=== PATIENT | female | born 1975 | race Caucasian/White ===

== ENCOUNTER → 2016-12-23 | Outpatient (CLI) | payer OTHER ==
[~2016-12-23] MED LIST: B12; BENZ0.5T3 PO; BUPR100T7 PO; CEPH-507 PO; CLON1TAB3 PO; CTLP20T PO; D3; DOXY25TA46 PO; ESCI20TA45 PO; FAMO20TA5 PO; FERR-84 PO; HSCO125 PO; HYDR-700 PO; KETO10TA77 PO; KETO75CA PO; MESA10002 RC; MULTIVITAMIN; MUPI22OI2 TOP; OLAN10TA17 PO; OMEP20TA2 PO; ONDA-42 SL; ONDA8TAB9 PO; PANT40TA3 PO; PNT40TEC PO; QUET200T2 PO; SCR1T1 PO; SERT100T8 PO; SODI1POW MC; TRAZ-28 PO; ZOLP5TAB6 PO; ZOLP5TAB7 PO; [UNRECOGNIZED DRUG - REMARK]
--- NOTE | 2016-12-23 12:31 | Diagnostic Imaging Report ---
PROCEDURE: MRI left upper extremity without contrast. TECHNIQUE: Multiplanar, multisequence non contrast-enhanced MRI of the left upper extremity was accomplished. INDICATION: Shoulder pain. FINDINGS: There are no previous MRI examinations available for comparison. The plain film examination of the left shoulder performed on 10/04/2016 failed to show any sign of an acute abnormality. On the T2 fat-saturated coronal series of this exam, there are few faint areas of slightly increased signal within the substance of the rotator cuff. These are more likely due to tendinosis than to a partial tear. The supraspinatus muscle itself is not retracted or bunched. The acromioclavicular joint is not hypertrophied and there is no narrowing of the outlet for the supraspinatus muscle. The biceps tendon and the subscapularis tendon are intact. On the coronal T2 fat-saturated series, normal sublabral recess is evident. Just superior to this, however, there is a small 3 mm area of abnormal signal in the superior labrum. This finding is worrisome for a small SLAP 2 tear. If further study is desired, then a follow-up exam with intra-articular contrast would be recommended. There is no abnormal signal arising from the osseous structures to suggest bone edema. There is no sign of a joint effusion. IMPRESSION: 1. There is mild tendinosis of the rotator cuff, but there is no evidence for a tear. 2. There is no narrowing of the outlet for the supraspinatus muscle due to degenerative disease of the acromioclavicular joint. 3. There may be a small SLAP 2 tear. Recommendations as above. 4. There is no acute bony abnormality identified. Dictated by: Dictated on workstation # [id number]
== END ==
LOC: RAD 10:14
PROVIDERS: ATTEND Nurse Practitioner
DX: M75.102 Unspecified rotator cuff tear or rupture of left shoulder, not specified as traumatic (principal)
CPT/HCPCS: 73221

== ENCOUNTER → 2017-03-11 | Outpatient (CLI) | payer OTHER | LOC: PREOP 05:40 | PROVIDERS: ATTEND Surgery | DX: Z01.818 Encounter for other preprocedural examination (principal); K21.9 Gastro-esophageal reflux disease without esophagitis; K92.1 Melena ==

== ENCOUNTER 2017-03-15 12:10 | Day surgery (SDC) | payer OTHER ==
[~2017-03-15] VITALS: Ht 157.5 cm; Wt 65.8 kg
[~2017-03-15 12:10] MED LIST changes: -BUPR100T7 PO; -FERR-84 PO; -MESA10002 RC; -SODI1POW MC; -TRAZ-28 PO
[2017-03-15] MEDS ORDERED: NS IV 1000 ML 1,000 ML IV STA (12:22)
[2017-03-15] MEDS ORDERED: HURRICAINE EXT TUBE (BENZOCAINE) XX PRN (12:30)
[2017-03-15] MEDS ORDERED: proPOfol 200 MG/20 ML (DIPRIVAN) VIAL IV ONE (12:44)
[2017-03-15] MEDS ORDERED: MIDAZOLAM 2 MG/2 ML (VERSED) VIAL ONE ×2 (12:44→13:21)
[2017-03-15 12:45] VITALS: BP 103/77
[2017-03-15] MEDS ORDERED: NS IV 1000 ML 1,000 ML ONE (12:57)
[2017-03-15] MEDS ORDERED: SODI1POW MC (12:58)
[2017-03-15] MEDS ORDERED: CLON1TAB3 PO (12:58)
[2017-03-15] MEDS ORDERED: BUPR100T7 PO (12:58)
[2017-03-15] MEDS ORDERED: FERR-84 PO (12:58)
[2017-03-15] MEDS ORDERED: TRAZ-28 PO (12:58)
--- NOTE | 2017-03-15 13:02 | Progress Note-Pre Operative ---
Pre-Operative Progress Note H&P Reviewed The H&P was reviewed, patient examined and no changes noted. Date H&P Reviewed: Mar 15, 2017 Time H&P Reviewed: 13:02 Pre-Operative Diagnosis: reflux, and blood in stools BETTYE CRANE DO Mar 15, 2017 13:02
--- NOTE | 2017-03-15 14:04 | Progress Note-Post Operative ---
Post-Operative Progess Note Surgeon (s)/Development Chemist (s) Surgeon BETTYE CRANE DO Development Chemist: 0 Pre-Operative Diagnosis reflux, and blood in stools Post-Operative Diagnosis minimal gastritis, possible early ulcerative colitis Post-Op Procedure Note Date of Procedure: Mar 15, 2017 Name of Procedure Performed: egd c biopsy and colonoscopy c cold biopsies Description of the Procedure: see note Findings of the Procedure see note Anesthesia Type per mda Estimated blood loss (mL): none Specimen(s) collected/removed antrum, rectal/sigmoid biopsies BETTYE CRANE DO Mar 15, 2017 2:04 pm
[2017-03-15] MEDS ORDERED: MESA10002 RC (14:05)
--- NOTE | 2017-03-15 14:10 | Discharge Inst-Simple/Standard ---
Discharge Inst-Standard Discharge Medications New, Converted or Re-Newed RX: RX on Chart Patient Instructions/Follow Up Plan of Care/Instructions/FU: Follow up with Dr Brown in 2 weeks Take medication as directed. Us at night time. Try to have a bowel movement if you can prior to inserting medication. Activity as Tolerated: Yes Discharge Diet: No Restrictions RICA HUTCHINSON APRN Mar 15, 2017 14:10
[2017-03-15 14:20] VITALS: BP 100/75
[2017-03-15 15:05] VITALS: BP 101/63
[2017-03-15 15:15] VITALS: BP 101/63
--- NOTE | 2017-03-17 10:01 | PROCEDURE REPORT ---
PROCEDURE PHYSICIAN: BETTYE CRANE DATE OF PROCEDURE: 03/15/2017 PREOPERATIVE DIAGNOSIS: 1. Reflux. 2. Blood in stools. POSTOPERATIVE DIAGNOSES: 1. Minimal gastritis. 2. Possible early ulcerative colitis. PROCEDURE: 1. EGD with biopsy. 2. Colonoscopy with cold biopsies. SURGEON: Stephanie. ANESTHESIA: Per MDA ESTIMATED BLOOD LOSS: None. COMPLICATIONS: None. INDICATIONS: The patient is a 41-year-old female who has been having reflux of blood in her stools. She understands the risks and benefits of procedures and wished to proceed with procedures. Consent was signed on the chart. PROCEDURE: The patient was taken endoscopy suite, placed in left lateral recumbent position Timeout was performed. The scope was inserted in the mouth, down the esophagus, stomach and into the duodenum without difficulty. There were no polyps, masses or ulcerations present within the duodenum. The scope was then slowly retracted back into the stomach where it had some minimal erythematous changes in the antrum. Biopsy of the antrum was obtained. The scope was also retroflexed noting no other pathology. The scope was returned its normal position and slowly withdrawn back into the distal esophagus. There were no polyps, masses, or ulcerations. The scope was slowly retracted back until completely removed noting no further pathology. COLONOSCOPY: Digital rectal exam was performed. There were no palpable polyps, masses or ulcerations. The scope was inserted in the rectum, which then demonstrated small ulcerations circumferentially. This continued all the way up to the mid sigmoid colon. The scope was continued to be inserted until the cecum was reached without much difficulty. The prep was adequate. The scope was then slowly retracted back. There were no polyps, masses or ulcers within the cecum, ascending, transverse, descending colon. About midportion of the sigmoid began noticing ulcerations which continued all the way down to the rectum. Cold biopsies were obtained of the sigmoid and rectum. The scope was also retroflexed noting no other pathology. The scope was returned its normal position slowly withdrawn until completely removed. RECOMMENDATIONS: The patient to be placed on Canasa suppositories. Would recommend follow-up with financial planning advisor or management by a primary care provider. Would repeat colonoscopy in one year to reevaluate at that time. If she has any problems prior to that, she should be reevaluated at that time. Job ID: [id number] Dictated Date: 03/15/2017 14:05:04 Wastewater Operator Date: 03/17/2017 09:51:41 / fara
== END 2017-03-15 15:15 | disposition home or self-care (01) ==
LOC: ENDO 12:10
PROVIDERS: ATTEND Surgery
DX: K92.1 Melena (principal); K21.9 Gastro-esophageal reflux disease without esophagitis; K29.70 Gastritis, unspecified, without bleeding
CPT/HCPCS: 84703; 88305

== ENCOUNTER 2017-04-14 14:15 | Outpatient (RCR) | payer SELFPAY ==
[~2017-04-14 14:15] MED LIST changes: +BUPR100T7 PO; +FERR-84 PO; +MESA10002 RC; +SODI1POW MC; +TRAZ-28 PO
== END 2017-05-09 14:44 | disposition home or self-care (01) ==
PROVIDERS: ATTEND Nurse Practitioner
DX: S43.432A Superior glenoid labrum lesion of left shoulder, initial encounter (principal); X58.XXXA Exposure to other specified factors, initial encounter; Y99.8 Other external cause status

== ENCOUNTER 2018-04-26 10:04 | Emergency (ER) | payer MEDICARE, MEDICAID ==
[~2018-04-26] VITALS: Ht 157.5 cm; Wt 56.2 kg
[~2018-04-26 10:04] MED LIST changes: -BENZ0.5T3 PO; +BENZ0.5T42 PO; -DOXY25TA46 PO; +UNISOM25 M1 PO
--- OUTSIDE RECORDS SUMMARY | 2018-04-26 10:10 | XMS REPORT | Clinical Summary ---
Author Author [facility] Organization [facility] Address Unknown Phone Unavailable Care Team Providers Care Teletype Mechanic Name Role Phone Annmarie Srivastava PP Allergies Active Allergy Reactions Severity Noted Date Comments Gluten Meal Nausea And Vomiting 09/01/2016 Metoprolol Nausea And Vomiting 08/15/2015 Unknown Current Medications Prescription Sig. Disp. Refills Start End Date Status Date pantoprazole (PROTONIX) Take 1 tablet (40 mg 30 tablet 0 08/25/20 Active 40 MG tabletIndications: total) by mouth every 15 Gastroesophageal Reflux morning before breakfast. Disease Indications: Gastroesophageal Reflux Disease traZODone (DESYREL) 100 Take 1/2 tab to 1 tab 30 tablet 0 09/17/20 Active MG tabletIndications: nightly as needed for 15 Insomnia insomnia Indications: Trouble Sleeping sucralfate (CARAFATE) 1 G Take 1 g by mouth 3 Active tabletIndications: (three) times daily Gastroesophageal Reflux before meals. Disease Indications: Gastroesophageal Reflux Disease diphenhydrAMINE Take 25 mg by mouth at Active (BENADRYL) 25 mg capsule bedtime. buPROPion (WELLBUTRIN SR) Take 200 mg by mouth 2 Active 200 MG 12 hr (two) times daily. tabletIndications: Major Indications: Major Depressive Disorder Depressive Disorder clonazePAM (KLONOPIN) 0.5 Take 1 tablet (0.5 mg 28 tablet 0 09/07/20 Active MG tabletIndications: total) by mouth 2 (two) 16 anxiety times daily. Indications: anxiety Do not exceed a daily dose of 1 mg DULoxetine (CYMBALTA) 60 Take 1 capsule (60 mg 14 capsule 0 09/07/[address] capsuleIndications: total) by mouth daily. 16 Generalized Anxiety Indications: Generalized Disorder, Major Anxiety Disorder, Major Depressive Disorder Depressive Disorder Active Problems Problem Noted Date VIVIANE (generalized anxiety disorder) 08/16/2015 MDD (major depressive disorder), recurrent severe, without psychosis (HCC) 08/15/2015 Resolved Problems Problem Noted Date Resolved Date Depression with suicidal ideation 09/01/2016 09/07/2016 Mood disorder (HCC) 09/07/2015 09/17/2015 Immunizations Name Dates Previously Given Next Due INFLUENZA IIV4 PF 09/02/2016 (FLULAVAL,FLUZONE,FLUARIX ,AFLURIA QUAD) Influenza IIV3 PFree 08/15/2015 Social History Tobacco Use Types Packs/Day Years Used Date Never Smoker Alcohol Use Drinks/Week oz/Week Comments No Sex Assigned at Date Recorded Not on file Last Filed Vital Signs Vital Sign Reading Time Taken Blood Pressure 97/65 09/07/2016 7:29 AM CDT Pulse 120 09/07/2016 7:29 AM CDT Temperature 36.7 C (98.1 F) 09/07/2016 7:26 AM CDT Respiratory Rate 18 09/07/2016 7:26 AM CDT Oxygen Saturation 97% 09/07/2016 7:26 AM CDT Inhaled Oxygen - - Concentration Weight 66.2 kg (146 lb) 09/02/2016 1:01 AM CDT Height 157.5 cm (5' 2.01") 09/02/2016 1:01 AM CDT Body Mass Index 26.7 09/02/2016 1:01 AM CDT Plan of Treatment Health Maintenance Due Date Last Done Comments Varicella Vaccines (1 of 1987 2 - 2 Dose Adolescent Series) DTaP,Tdap,and Td Vaccines 1993 (1 - Tdap) CERVICAL CANCER SCREENING 1995 Influenza Vaccine (Season 07/29/2018 09/02/2016, 08/15/2015 Ended) Results Not on filefrom Last 3 Months
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
--- OUTSIDE RECORDS SUMMARY | 2018-04-26 10:11 | XMS REPORT ---
Author Author SHARAN Hernandez [facility] Address [address] [place] [address] Care Team Providers Care Vice Principal Name Role Phone SHARAN Hernandez Unavailable PROBLEMS Type Condition ICD9-CM Code [id number] Code Onset Dates Condition Status SNOMED Code Problem Major depressive disorder, recurrent severe without psychotic features F33.2 Active 051691823476 Problem Abdominal pain R10.9 Active 17873240 Problem Gastroesophageal reflux disease without esophagitis K21.9 Active 503352863 Problem Iron deficiency anemia, unspecified iron deficiency anemia type D50.9 Active 69897427 Problem Panic disorder with agoraphobia F40.01 Active 24614201 Problem Post traumatic stress disorder F43.10 Active 66910939 Problem History of celiac disease Z87.19 Active 586441730 Problem Epigastric pain R10.13 Active 39652407 Problem Chronic post-traumatic stress disorder F43.12 Active 136386733 Problem Tear of left rotator cuff, unspecified tear extent M75.102 Active 1469640 ALLERGIES Substance Reaction Event Type Date Status Brintellix nausea and vomiting Drug Allergy Jan, Active Mirtazapine fatigue and nausea Drug Allergy Jan, Active Topamax 50 Mg Tablet dizziness Non Drug Allergy Jan, Active SOCIAL HISTORY Never Assessed PLAN OF CARE Activity Details Follow Up 4 Weeks Reason: VITAL SIGNS Height 62 in 2017-02-21 Weight 121.0 lbs 2017-02-21 Heart Rate 88 bpm 2017-02-21 Respiratory Rate 18 2017-02-21 BMI 22.13 kg/m2 2017-02-21 Blood pressure systolic 92 mmHg 2017-02-21 Blood pressure diastolic 65 mmHg 2017-02-21 MEDICATIONS Medication Instructions Dosage Frequency Start Date End Date Duration Status Wellbutrin SR 100 MG Orally Twice a day 1 tablet 12h 30 days Active Cymbalta 30 MG Orally Once a day 3 capsules 24h 30 days Active Trazodone HCl 100 MG Orally Once a day as needed 0.5 to 1 tablet at bedtime 30 days Active Iron 325 (65 Fe) MG Orally Once a day 1 tablet 24h Dec, 30 day( s) Active Pantoprazole Sodium 40 MG oral daily 1 tablet 24h Active Klonopin 1 MG Orally Twice a day 1 tablet 12h Active Carafate 1 GM Orally three times a day 1 tablet on an empty stomach 8h Active RESULTS Name Result Date Reference Range URINE DRUG SCREEN (IN HOUSE) 2017-02-21 Lot # [id number] Exp date Control + COCAINE Negative AMPH Negative MTD Negative THC Negative OPIATE Negative BENZO Negative PCP Negative BAR Negative OXY Negative MAMP Negative TCA Negative BUP Not tested MDMA Negative PROCEDURES Procedure Date Ordered Result Body Site DRUG TEST PRSMV DIR OPT OBS February 21, 2017 IMMUNIZATIONS No Known Immunizations MEDICAL (GENERAL) HISTORY Type Description Date Medical [...] curettage Surgical History EGD 2012 Hospitalization History [facility]--Attempted suicide 07/2015 Hospitalization History [facility] -- Attempted suicide 08/2015 Hospitalization History [facility] health unit 11/2015 Hospitalization History [facility] 08/2016
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
--- OUTSIDE RECORDS SUMMARY | 2018-04-26 10:13 | XMS REPORT ---
Author Author RACHELE LEE [facility] Address [address] [place] [address] Care Team Providers Care Fitness Specialist Name Role Phone RACHELE LEE Unavailable PROBLEMS Type Condition ICD9-CM Code [id number] Code Onset Dates Condition Status SNOMED Code Problem Major depressive disorder, recurrent severe without psychotic features F33.2 Active 421284536210 Problem Iron deficiency anemia, unspecified iron deficiency anemia type D50.9 Active 94409213 Problem Chronic post-traumatic stress disorder F43.12 Active 765830622 Problem Tear of left rotator cuff, unspecified tear extent M75.102 Active 2733915 Problem Abdominal pain R10.9 Active 53528908 Problem Gastroesophageal reflux disease without esophagitis K21.9 Active 090830026 Problem History of celiac disease Z87.19 Active 588822561 Problem Epigastric pain R10.13 Active 54693822 ALLERGIES Substance Reaction Event Type Date Status Brintellix nausea and vomiting Drug Allergy Oct, Active Topamax 50 Mg Tablet dizziness Non Drug Allergy Oct, Active SOCIAL HISTORY No smoking Hx information available PLAN OF CARE Activity Details Follow Up 4 Weeks Reason:tremor VITAL SIGNS Height 62 in 2016-11-17 Weight 136.5 lbs 2016-11-17 Temperature 98.0 degrees Fahrenheit 2016-11-17 Heart Rate 84 bpm 2016-11-17 Respiratory Rate 16 2016-11-17 BMI 24.96 kg/m2 2016-11-17 Blood pressure systolic 100 mmHg 2016-11-17 Blood pressure diastolic 62 mmHg 2016-11-17 MEDICATIONS Medication Instructions Dosage Frequency Start Date End Date Duration Status Wellbutrin SR 150 MG Orally Twice a day 1 tablet 12h Active Pantoprazole Sodium 40 MG oral daily 1 tablet 24h Active Cymbalta 60 MG Orally Once a day 1 capsule 24h Active Carafate 1 GM Orally three times a day 1 tablet on an empty stomach 8h Active Trazodone HCl 100 MG Orally Once a day as needed 0.5 to 1 tablet at bedtime Active RESULTS Name Result Date Reference Range VITAMIN B12 2016-11-17 Vitamin B12 287 211-946 TSH 2016-11-17 TSH 3.090 0.450-4.500 CBC 2016-11-17 WBC 5.6 3.4-10.8 RBC 3.94 3.77-5.28 Hemoglobin 11.4 11.1-15.9 Hematocrit 34.8 34.0-46.6 MCV 88 79-97 MCH 28.9 26.6-33.0 MCHC 32.8 31.5-35.7 RDW 14.6 12.3-15.4 Platelets 302 150-379 Neutrophils 34 Lymphs 49 Monocytes 14 Eos 3 Basos 0 Neutrophils (Absolute) 1.9 1.4-7.0 Lymphs (Absolute) 2.8 0.7-3.1 Monocytes(Absolute) 0.8 0.1-0.9 Eos (Absolute) 0.2 0.0-0.4 Baso (Absolute) 0.0 0.0-0.2 Immature Granulocytes 0 Immature Grans (Abs) 0.0 0.0-0.1 VITAMIN D, 25-H 2016-11-17 Vitamin D, 25-Hydroxy 32.0 30.0-100.0 CMP 2016-11-17 Glucose, Serum 97 65-99 BUN 5 6-24 Creatinine, Serum 0.75 0.57-1.00 eGFR If NonAfricn Am 99 >59 eGFR If Africn Am 114 >59 BUN/Creatinine Ratio 7 9-23 Sodium, Serum 141 134-144 Potassium, Serum 4.3 3.5-5.2 Chloride, Serum 100 96-106 Carbon Dioxide, Total 26 18-29 Calcium, Serum 9.4 8.7-10.2 Protein, Total, Serum 7.1 6.0-8.5 Albumin, Serum 4.2 3.5-5.5 Globulin, Total 2.9 1.5-4.5 A/G Ratio 1.4 1.1-2.5 Bilirubin, Total <0.2 0.0-1.2 Alkaline Phosphatase, S 61 39-117 AST (SGOT) 19 0-40 ALT (SGPT) 13 0-32 Xray : Shoulder, Left 2 view (IN HOUSE) 2016-11-17 PROCEDURES Procedure Date Ordered Related Diagnosis Body Site X-RAY EXAM OF SHOULDER Nov 17, 2016 [facility] Nov 17, 2016 VENIPUNCT, ROUTINE* Nov 17, 2016 Office Visit, Est Pt., Level 4 Nov 17, 2016 IMMUNIZATIONS No Known Immunizations
--- OUTSIDE RECORDS SUMMARY | 2018-04-26 10:13 | XMS REPORT ---
Author Author SHARAN Hernandez [facility] Address [address] [place] [address] Care Team Providers Care Auto Design Checker Name Role Phone SHARAN Hernandez Unavailable PROBLEMS Type Condition ICD9-CM Code [id number] Code Onset Dates Condition Status SNOMED Code Problem Major depressive disorder, recurrent severe without psychotic features F33.2 Active 221368284743 Problem Abdominal pain R10.9 Active 59168879 Problem Gastroesophageal reflux disease without esophagitis K21.9 Active 935914306 Problem Iron deficiency anemia, unspecified iron deficiency anemia type D50.9 Active 09355373 Problem Panic disorder with agoraphobia F40.01 Active 58237693 Problem Post traumatic stress disorder F43.10 Active 73062796 Problem History of celiac disease Z87.19 Active 231862332 Problem Epigastric pain R10.13 Active 11733172 Problem Chronic post-traumatic stress disorder F43.12 Active 548472934 Problem Tear of left rotator cuff, unspecified tear extent M75.102 Active 4752202 ALLERGIES Substance Reaction Event Type Date Status Brintellix nausea and vomiting Drug Allergy March, Active Mirtazapine fatigue and nausea Drug Allergy March, Active Topamax 50 Mg Tablet dizziness Non Drug Allergy March, Active SOCIAL HISTORY Never Assessed PLAN OF CARE Activity Details Follow Up 2 Months Reason: VITAL SIGNS Height 62 in 2017-04-22 Weight 121.4 lbs 2017-04-22 Heart Rate 104 bpm 2017-04-22 Respiratory Rate 20 2017-04-22 BMI 22.20 kg/m2 2017-04-22 Blood pressure systolic 95 mmHg 2017-04-22 Blood pressure diastolic 64 mmHg 2017-04-22 MEDICATIONS Medication Instructions Dosage Frequency Start Date End Date Duration Status Iron 325 (65 Fe) MG Orally twice a day 1 tablet 12h Dec, Active Carafate 1 GM Orally 4 times a day 1 tablet on an empty stomach 6h Active Trazodone HCl 100 MG Orally Once a day as needed 0.5 to 1 tablet at bedtime 30 days Active Pantoprazole Sodium 40 MG oral daily 1 tablet 24h Active Wellbutrin SR 100 MG Orally Twice a day 1 tablet 12h 30 days Active Tizanidine HCl 4 MG Orally at bedtime 1 tablet March, May, 30 days Active Cymbalta 30 MG Orally Once a day 3 capsules 24h 30 days Active Klonopin 1 MG Orally Twice a day 1 tablet 12h Active RESULTS No Results PROCEDURES No Known procedures IMMUNIZATIONS No Known Immunizations MEDICAL (GENERAL) HISTORY [...] curettage Surgical History EGD 2012 Hospitalization History [facility]--Attempted suicide 07/2015 Hospitalization History [facility] -- Attempted suicide 08/2015 Hospitalization History [facility] health unit 11/2015 Hospitalization History [facility] 08/2016
--- OUTSIDE RECORDS SUMMARY | 2018-04-26 10:14 | XMS REPORT ---
Author Author RACHELE LEE [facility] Address [address] [place] [address] Care Team Providers Care Floor Worker Well Service Name Role Phone RACHELE LEE Unavailable PROBLEMS Type Condition ICD9-CM Code [id number] Code Onset Dates Condition Status SNOMED Code Problem Major depressive disorder, recurrent severe without psychotic features F33.2 Active 325978434477 Problem Abdominal pain R10.9 Active 21124856 Problem Gastroesophageal reflux disease without esophagitis K21.9 Active 662115301 Problem Iron deficiency anemia, unspecified iron deficiency anemia type D50.9 Active 19073080 Problem Panic disorder with agoraphobia F40.01 Active 67373018 Problem Post traumatic stress disorder F43.10 Active 86360712 Problem History of celiac disease Z87.19 Active 020734786 Problem Epigastric pain R10.13 Active 81562775 Problem Chronic post-traumatic stress disorder F43.12 Active 893165619 Problem Tear of left rotator cuff, unspecified tear extent M75.102 Active 3784132 ALLERGIES No Information SOCIAL HISTORY Never Assessed PLAN OF CARE VITAL SIGNS MEDICATIONS Medication Instructions Dosage Frequency Start Date End Date Duration Status Iron 325 (65 Fe) MG Orally twice a day 1 tablet 12h Dec, Active RESULTS No Results PROCEDURES No Known [...] curettage Surgical History EGD 2012 Hospitalization History [facility]--Attempted suicide 07/2015 Hospitalization History [facility] -- Attempted suicide 08/2015 Hospitalization History [facility] health unit 11/2015 Hospitalization History [facility] 08/2016
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
--- OUTSIDE RECORDS SUMMARY | 2018-04-26 10:14 | XMS REPORT ---
Author Author RACHELE LEE [facility] Address [address] [place] [address] Care Team Providers Care Account Liaison Name Role Phone RACHELE LEE Unavailable PROBLEMS Type Condition ICD9-CM Code [id number] Code Onset Dates Condition Status SNOMED Code Problem Major depressive disorder, recurrent severe without psychotic features F33.2 Active 370728908671 Problem Abdominal pain R10.9 Active 34534140 Problem Gastroesophageal reflux disease without esophagitis K21.9 Active 297436556 Problem Iron deficiency anemia, unspecified iron deficiency anemia type D50.9 Active 06741739 Problem Panic disorder with agoraphobia F40.01 Active 50824045 Problem Post traumatic stress disorder F43.10 Active 23951879 Problem History of celiac disease Z87.19 Active 352086225 Problem Epigastric pain R10.13 Active 94204685 Problem Chronic post-traumatic stress disorder F43.12 Active 419334636 Problem Tear of left rotator cuff, unspecified tear extent M75.102 Active 5815785 ALLERGIES Substance Reaction Event Type Date Status Brintellix nausea and vomiting Drug Allergy Jan, Active Mirtazapine fatigue and nausea Drug Allergy Jan, Active Topamax 50 Mg Tablet dizziness Non Drug Allergy Jan, Active SOCIAL HISTORY Never Assessed PLAN OF CARE Activity Details Follow Up after consult and scopes Reason: VITAL SIGNS Height 62 in 2017-02-10 Weight 122.6 lbs 2017-02-10 Temperature 98.6 degrees Fahrenheit 2017-02-10 Heart Rate 90 bpm 2017-02-10 Respiratory Rate 18 2017-02-10 BMI 22.42 kg/m2 2017-02-10 Blood pressure systolic 88 mmHg 2017-02-10 Blood pressure diastolic 64 mmHg 2017-02-10 MEDICATIONS Medication Instructions Dosage Frequency Start Date End Date Duration Status Pantoprazole Sodium 40 MG oral daily 1 tablet 24h Active Iron 325 (65 Fe) MG Orally Once a day 1 tablet 24h Dec, 30 day( s) Active Klonopin 0.5 MG Orally Twice a day 1 tablet 12h Active Carafate 1 GM Orally three times a day 1 tablet on an empty stomach 8h Active Trazodone HCl 100 MG Orally Once a day as needed 0.5 to 1 tablet at bedtime Active Wellbutrin SR 150 MG Orally Twice a day 1 tablet 12h Active Cymbalta 60 MG Orally Once a day 1 capsule 24h Active RESULTS Name Result Date Reference Range CBC 2017-02-10 WBC 5.7 3.4-10.8 RBC 3.84 3.77-5.28 Hemoglobin 10.9 11.1-15.9 Hematocrit 34.3 34.0-46.6 MCV 89 79-97 MCH 28.4 26.6-33.0 MCHC 31.8 31.5-35.7 RDW 15.7 12.3-15.4 Platelets 255 150-379 Neutrophils 34 Lymphs 52 Monocytes 11 Eos 2 Basos 1 Neutrophils (Absolute) 1.9 1.4-7.0 Lymphs (Absolute) 3.0 0.7-3.1 Monocytes(Absolute) 0.6 0.1-0.9 Eos (Absolute) 0.1 0.0-0.4 Baso (Absolute) 0.0 0.0-0.2 Immature Granulocytes 0 Immature Grans (Abs) 0.0 0.0-0.1 CMP 2017-02-10 Glucose, Serum 91 65-99 BUN 6 6-24 Creatinine, Serum 0.81 0.57-1.00 eGFR If NonAfricn Am 90 >59 eGFR If Africn Am 104 >59 BUN/Creatinine Ratio 7 9-23 Sodium, Serum 142 134-144 Potassium, Serum 3.4 3.5-5.2 Chloride, Serum 102 96-106 Carbon Dioxide, Total 25 18-29 Calcium, Serum 8.5 8.7-10.2 Protein, Total, Serum 6.4 6.0-8.5 Albumin, Serum 3.7 3.5-5.5 Globulin, Total 2.7 1.5-4.5 A/G Ratio 1.4 1.2-2.2 Bilirubin, Total <0.2 0.0-1.2 Alkaline Phosphatase, S 66 39-117 AST (SGOT) 16 0-40 ALT (SGPT) 11 0-32 PROCEDURES Procedure Date Ordered Result Body Site IV INFUSION 2017-02-10 N/A COMPLETE CBC W/AUTO DIFF WBC February 10, 2017 VENIPUNCT, ROUTINE* February 10, 2017 COMPREHEN METABOLIC PANEL February 10, 2017 HYDRATION IV INFUSION, INIT February 10, 2017 IMMUNIZATIONS No Known Immunizations MEDICAL (GENERAL) [...] curettage Surgical History EGD 2012 [facility]2015 [facility]2015 Hospitalization History [facility] health unit 11/2015 [facility]
--- OUTSIDE RECORDS SUMMARY | 2018-04-26 10:15 | XMS REPORT ---
Author Author RACHELE LEE [facility] Address [address] [place] [address] Care Team Providers Care Medical Cash Poster Name Role Phone RACHELE LEE Unavailable PROBLEMS Type Condition ICD9-CM Code [id number] Code Onset Dates Condition Status SNOMED Code Problem Major depressive disorder, recurrent severe without psychotic features F33.2 Active 095701646067 Problem Abdominal pain R10.9 Active 00763969 Problem Gastroesophageal reflux disease without esophagitis K21.9 Active 696433607 Problem Iron deficiency anemia, unspecified iron deficiency anemia type D50.9 Active 26726387 Problem Panic disorder with agoraphobia F40.01 Active 31950645 Problem Post traumatic stress disorder F43.10 Active 09335107 Problem History of celiac disease Z87.19 Active 834036132 Problem Epigastric pain R10.13 Active 33455770 Problem Chronic post-traumatic stress disorder F43.12 Active 258406577 Problem Tear of left rotator cuff, unspecified tear extent M75.102 Active 0984135 ALLERGIES Substance Reaction Event Type Date Status Brintellix nausea and vomiting Drug Allergy Nov, Active Mirtazapine fatigue and nausea Drug Allergy Nov, Active Topamax 50 Mg Tablet dizziness Non Drug Allergy Nov, Active SOCIAL HISTORY No smoking Hx information available PLAN OF CARE VITAL SIGNS MEDICATIONS Unknown Medications RESULTS No Results PROCEDURES No Known procedures IMMUNIZATIONS No Known Immunizations
--- OUTSIDE RECORDS SUMMARY | 2018-04-26 10:15 | XMS REPORT ---
Author Author ROBERT SMITH [facility] Address [address] [place] [address] Care Team Providers Care Deputy Brand Inspector Name Role Phone ROBERT SMITH Unavailable PROBLEMS Type Condition ICD9-CM Code [id number] Code Onset Dates Condition Status SNOMED Code Problem Major depressive disorder, recurrent severe without psychotic features F33.2 Active 388127811332 Problem Abdominal pain R10.9 Active 28245412 Problem Gastroesophageal reflux disease without esophagitis K21.9 Active 787614471 Problem Iron deficiency anemia, unspecified iron deficiency anemia type D50.9 Active 17682733 Problem Panic disorder with agoraphobia F40.01 Active 81702030 Problem Post traumatic stress disorder F43.10 Active 62230677 Problem History of celiac disease Z87.19 Active 072075875 Problem Epigastric pain R10.13 Active 17057810 Problem Chronic post-traumatic stress disorder F43.12 Active 606153223 Problem Tear of left rotator cuff, unspecified tear extent M75.102 Active 9904460 ALLERGIES No Information SOCIAL HISTORY Never Assessed PLAN OF CARE Activity Details Follow Up 6 Weeks Reason: VITAL SIGNS Height 62 in 2017-01-06 Blood pressure systolic 106 mmHg 2017-01-06 Blood pressure diastolic 70 mmHg 2017-01-06 MEDICATIONS Unknown Medications RESULTS No Results PROCEDURES Procedure Date Ordered Result Body Site JOINT INJECTION-INTERMEDIATE JOINT 2017-01-06 N/A DRAIN/INJECT, JOINT/BURSA Jan 06, 2017 DEPO MEDROL 80 MG/ML Jan 06, 2017 IMMUNIZATIONS No Known Immunizations MEDICAL (GENERAL) [...] Surgical History EGD 2012 Hospitalization History [facility]--Attempted suicide 07/2015 Hospitalization History [facility] -- Attempted suicide 08/2015 Hospitalization History [facility] behavioral health unit 11/2015 Hospitalization History [facility] 08/2016
--- OUTSIDE RECORDS SUMMARY | 2018-04-26 10:15 | XMS REPORT ---
Author Author RACHELE LEE [facility] Address [address] [place] [address] Care Team Providers Care Route Inspector Name Role Phone RACHELE LEE Unavailable PROBLEMS Type Condition ICD9-CM Code [id number] Code Onset Dates Condition Status SNOMED Code Problem Major depressive disorder, recurrent severe without psychotic features F33.2 Active 425332600460 Problem Abdominal pain R10.9 Active 90547268 Problem Gastroesophageal reflux disease without esophagitis K21.9 Active 323923640 Problem Iron deficiency anemia, unspecified iron deficiency anemia type D50.9 Active 35900537 Problem Panic disorder with agoraphobia F40.01 Active 34941936 Problem Post traumatic stress disorder F43.10 Active 78255236 Problem History of celiac disease Z87.19 Active 899673553 Problem Epigastric pain R10.13 Active 85597496 Problem Chronic post-traumatic stress disorder F43.12 Active 741031160 Problem Tear of left rotator cuff, unspecified tear extent M75.102 Active 9447903 ALLERGIES No Information SOCIAL HISTORY Never Assessed PLAN OF CARE VITAL SIGNS MEDICATIONS Medication Instructions Dosage Frequency Start Date End Date Duration Status Carafate 1 GM Orally 4 times a day 1 tablet on an empty stomach 6h Active RESULTS No Results PROCEDURES No Known [...] Surgical History EGD 2012 Hospitalization History [facility]--Attempted suicide 07/2015 Hospitalization History [facility] -- Attempted suicide 08/2015 Hospitalization History [facility] health unit 11/2015 Hospitalization History [facility] 08/2016
--- OUTSIDE RECORDS SUMMARY | 2018-04-26 10:15 | XMS REPORT ---
Author Author RACHELE LEE [facility] Address [address] [place] [address] Care Team Providers Care Cargo Trimmer Name Role Phone RACHELE LEE Unavailable PROBLEMS Type Condition ICD9-CM Code IPR60-CQ Code Onset Dates Condition Status SNOMED Code Problem Major depressive disorder, recurrent severe without psychotic features F33.2 Active 309823865350 Problem Abdominal pain R10.9 Active 11206092 Problem Gastroesophageal reflux disease without esophagitis K21.9 Active 350569429 Problem Iron deficiency anemia, unspecified iron deficiency anemia type D50.9 Active 33353839 Problem Panic disorder with agoraphobia F40.01 Active 78611943 Problem Post traumatic stress disorder F43.10 Active 95067690 Problem History of celiac disease Z87.19 Active 257999430 Problem Epigastric pain R10.13 Active 48177169 Problem Chronic post-traumatic stress disorder F43.12 Active 463207577 Problem Tear of left rotator cuff, unspecified tear extent M75.102 Active 6663768 ALLERGIES Unknown Allergies SOCIAL HISTORY No smoking Hx information available PLAN OF CARE VITAL SIGNS MEDICATIONS Medication Instructions Dosage Frequency Start Date End Date Duration Status Iron 325 (65 Fe) MG Orally Once a day 1 tablet 24h Dec, 30 day( s) Active RESULTS No Results PROCEDURES No Known procedures IMMUNIZATIONS No Known Immunizations
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
[2018-04-26] MEDS ORDERED: NS IV 1000 ML 1,000 ML IV ONE (10:39)
[2018-04-26 11:47] LABS: BASOPHILS % (AUTO) 0 % (0-10); EOSINOPHILS # (AUTO) 0.2 10^3/uL (0.0-0.3); EOSINOPHILS % (AUTO) 3 % (0-10); HEMATOCRIT 27 % (35-52); HEMOGLOBIN 8.4 G/DL (11.5-16.0); LYMPHOCYTES # (AUTO) 2.8 X 10^3 (1.0-4.0); LYMPHOCYTES % (AUTO) 46 % (12-44); MEAN CORPUSCULAR HEMOGLOBIN 26 PG (25-34); MEAN CORPUSCULAR HGB CONC 32 G/DL (32-36); MEAN CORPUSCULAR VOLUME 81 FL (80-99); MEAN PLATELET VOLUME 10.8 FL (7.4-10.4); MONOCYTES % (AUTO) 17 % (0-12); NEUTROPHILS # (AUTO) 2.1 X 10^3 (1.8-7.8); NEUTROPHILS % (AUTO) 34 % (42-75); PLATELET COUNT 287 10^3/uL (130-400); RED BLOOD COUNT 3.29 10^6/uL (4.35-5.85); RED CELL DISTRIBUTION WIDTH 17.2 % (10.0-14.5); WHITE BLOOD COUNT 6.1 10^3/uL (4.3-11.0)
[2018-04-26 12:05] LABS: ALANINE AMINOTRANSFERASE 13 U/L (0-55); ALBUMIN 3.8 GM/DL (3.2-4.5); ALKALINE PHOSPHATASE 54 U/L (40-136); BILIRUBIN,TOTAL 0.2 MG/DL (0.1-1.0); BUN/CREATININE RATIO 9; CARBON DIOXIDE 29 MMOL/L (21-32); CHLORIDE 105 MMOL/L (98-107); CREATININE SERUM 0.74 MG/DL (0.60-1.30); GFR ESTIMATED > 60; GLUCOSE 82 MG/DL (70-105); POTASSIUM 3.5 MMOL/L (3.6-5.0); SODIUM 140 MMOL/L (135-145)
[2018-04-26] MEDS ORDERED: ONDANSETRON 4 MG/2 ML (SDV) Z0FRAN IVP ONE (12:15)
[2018-04-26 12:29] LABS: PROTHROMBIN TIME PATIENT 13.2 SEC (12.2-14.7)
--- NOTE | 2018-04-26 12:42 | ED General ---
General Chief Complaint: Dizziness/Syncope Stated Complaint: DIZZY/BP LOW Nursing Triage Note: c/o feeling weak and lightheaded. Reports several falls as of late. States for the last year she has has very heavy menstrual bleeding. Low Hg reported and sent to the ER for possible transfusion. Nursing Sepsis Screen: No Definite Risk Source of Information: Patient Exam Limitations: No Limitations History of Present Illness Date Seen by Provider: April 26, 2018 Time Seen by Provider: 11:40 Initial Comments 42 yo female patient presents to the ED with c/o feeling overall weak and lightheaded. Patient reports heavy menstrual bleeding for the last year. Uses approximately 12 pads per day and soaks through multiple times. Patient reports she is getting ready to start her period in the next couple of days. Patient does have a h/o celiac disease and reflux. Had EGD and C/Scope 1 year ago with findings of gastritis and questionable ulcerative colitis. She was seen at [facility] clinic today and found to have a SBP of 80 mmHg. Patient sent to the ED for further evaluation and management. No h/o abnormal pap's. A1. 2 uncomplicated vaginal deliveries. No h/o ovarian cysts or endometriosis. Timing/Duration: Getting Worse, Other (1 year onset) Modifying Factors: worse with Other (no improvement with oral iron supplements. ) Allergies and Home Medications Allergies Coded Allergies: metoprolol (Verified Allergy, Unknown, 08/13/15) Home Medications Bupropion HCl 100 Mg Tablet.er, 100 MG PO DAILY, (Reported) Clonazepam 1 Mg Tablet, 1 MG PO DAILY, (Reported) Ferrous Sulfate 325 Mg Tablet, 325 MG PO DAILY, (Reported) Mesalamine 1,000 Mg Supp.rect, 1,000 MG RC HS Prescribed by: RICA TURNERRick on 03/15/17 1405 Pantoprazole Sodium 40 Mg Tablet.dr, 40 MG PO DAILY, (Reported) Sertraline HCl 100 Mg Tablet, 100 MG PO BID, (Reported) Sodium Sulfate 1 Gm Powder, 1 GM MC DAILY, (Reported) Trazodone HCl 50 Mg Tablet, 50 MG PO DAILY, (Reported) Patient Home Medication List Home Medication List Reviewed: Yes Review of Systems Constitutional: see HPI; No chills, No diaphoresis; dizziness; No fever; malaise, weakness, other (fatigue) EENTM: no symptoms reported Respiratory: No cough, No dyspnea on exertion, No short of breath Cardiovascular: No chest pain, No edema, No palpitations, No syncope Gastrointestinal: see HPI, abdominal pain (epigastric and suprapubic), constipation (chronic intermittent), diarrhea (chronic intermittent); No hematemesis; heartburn; No jaundice; loss of appetite, nausea; No vomiting Genitourinary: see HPI; No dysuria, No frequency; pain, other (menorrhagia.) Musculoskeletal: no symptoms reported Skin: no symptoms reported Psychiatric/Neurological: No Symptoms Reported Hematologic/Lymphatic: See HPI, Anemia (h/o chronic anemia) All Other Systems Reviewed Negative Unless Noted: Yes (Negative excepted noted.) Past Vdishmp-Nkbunl-Gjkxsa Hx Patient Social History Alcohol Use: Denies Use Recreational Drug Use: No Recent Foreign Travel: No Contact w/Someone Who Travel: No Recent Infectious Disease Expo: No Recent Hopitalizations: No Immunizations Up To Date Tetanus Booster (TDap): Less than 5yrs Seasonal Allergies Seasonal Allergies: No Past Medical History Surgeries: Yes (D&C) Gallbladder, Tubal Ligation Respiratory: No Currently Using CPAP: No Currently Using BIPAP: No 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 Neurological: No Headaches /Migraines Hx : 3 Hx Para: 2 Hx Total # of Abortions (Sp): 1 Reproductive Disorders: No 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 Sexually Transmitted Disease: No Genitourinary: No Gastrointestinal: Yes (celiac disease) Gastroesophageal Reflux, Chronic Diarrhea Musculoskeletal: No Endocrine: No Cancer: No Psychosocial: Yes Anxiety, Suicide Attempts, Depression Integumentary: No Blood Disorders: Yes (CHRONIC ANEMIA- RECEIVED IRON INJ X5 IN 2012) Adverse Reaction/Blood Tranf: No Family Medical History Reviewed Nursing Family Hx (DENIES FHX of endometriosis, ovarian cysts, ovarian CA, or uterine CA.) No Pertinent Family Hx Physical Exam Vital Signs Vital Signs - First Documented 04/26/18 10:40 Temp 95.7 Pulse 72 Resp 18 B/P (MAP) 110/70 (83) O2 Delivery Room Air Capillary Refill : Less Than 3 Seconds Progress/Results/Core Measures Suspected Sepsis Recent Fever Within 48 Hours: No Infection Criteria Present: Suspected New Infection New/Unexplained Altered Menta: No Sepsis Screen: No Definite Risk SIRS Temperature:95.7 Pulse: 72 Respiratory Rate: 18 Laboratory Tests 04/26/18 11:30: White Blood Count 6.1 Blood Pressure 110 /70 Mean: 83 Laboratory Tests 04/26/18 11:30: Creatinine 0.74, INR Comment 1.0, Platelet Count 287, Total Bilirubin 0.2 Results/Orders Lab Results Laboratory Tests Test 04/26/18 11:30 04/26/18 13:20 Range/Units White Blood Count 6.1 4.3-11.0 10^3/uL Red Blood Count 3.29 L 4.35-5.85 10^6/uL Hemoglobin 8.4 L 11.5-16.0 G/DL Hematocrit 27 L 35-52 % Mean Corpuscular Volume 81 80-99 FL Mean Corpuscular Hemoglobin 26 25-34 PG Mean Corpuscular Hemoglobin Concent 32 32-36 G/DL Red Cell Distribution Width 17.2 H 10.0-14.5 % Platelet Count 287 130-400 10^3/uL Mean Platelet Volume 10.8 H 7.4-10.4 FL Neutrophils (%) (Auto) 34 L 42-75 % Lymphocytes (%) (Auto) 46 H 12-44 % Monocytes (%) (Auto) 17 H 0-12 % Eosinophils (%) (Auto) 3 0-10 % Basophils (%) (Auto) 0 0-10 % Neutrophils # (Auto) 2.1 1.8-7.8 X 10^3 Lymphocytes # (Auto) 2.8 1.0-4.0 X 10^3 Monocytes # (Auto) 1.0 0.0-1.0 X 10^3 Eosinophils # (Auto) 0.2 0.0-0.3 10^3/uL Basophils # (Auto) 0.0 0.0-0.1 10^3/uL Prothrombin Time 13.2 12.2-14.7 SEC INR Comment 1.0 0.8-1.4 Activated Partial Thromboplast Time 27 24-35 SEC Sodium Level 140 135-145 MMOL/L Potassium Level 3.5 L 3.6-5.0 MMOL/L Chloride Level 105 98-107 MMOL/L Carbon Dioxide Level 29 21-32 MMOL/L Anion Gap 6 5-14 MMOL/L Blood Urea Nitrogen 7 7-18 MG/DL Creatinine 0.74 0.60-1.30 MG/DL Estimat Glomerular Filtration Rate > 60 BUN/Creatinine Ratio 9 Glucose Level 82 70-105 MG/DL Calcium Level 9.0 8.5-10.1 MG/DL Total Bilirubin 0.2 0.1-1.0 MG/DL Aspartate Amino Transf (AST/SGOT) 16 5-34 U/L Alanine Aminotransferase (ALT/SGPT) 13 0-55 U/L Alkaline Phosphatase 54 40-136 U/L Troponin I < 0.30 <0.30 NG/ML Total Protein 7.0 6.4-8.2 GM/DL Albumin 3.8 3.2-4.5 GM/DL Free Thyroxine 0.93 0.70-1.48 NG/DL TSH [place] Testing 5.03 H 0.35-4.94 UIU/ML Urine Color YELLOW Urine Clarity CLEAR Urine pH 6 5-9 Urine Specific [place] 1.010 L 1.016-1.022 Urine Protein NEGATIVE NEGATIVE Urine Glucose (UA) NEGATIVE NEGATIVE Urine Ketones NEGATIVE NEGATIVE Urine Nitrite NEGATIVE NEGATIVE Urine Bilirubin NEGATIVE NEGATIVE Urine Urobilinogen NORMAL NORMAL MG/DL Urine Leukocyte Esterase NEGATIVE NEGATIVE Urine RBC (Auto) NEGATIVE NEGATIVE Urine RBC NONE /HPF Urine WBC NONE /HPF Urine Squamous Epithelial Cells 5-10 /HPF Urine Crystals NONE /LPF Urine Bacteria NEGATIVE /HPF Urine Casts NONE /LPF Urine Mucus SMALL H /LPF Urine Culture Indicated NO Urine Test NEGATIVE NEGATIVE My Orders Orders - LISA LAWSON Ondansetron Injection (Zofran Injectio (04/26/18 12:15) Ua Culture If Indicated (04/26/18 12:12) Urine Bedside (04/26/18 12:12) Protime With Inr (04/26/18 12:12) Partial Thromboplastin Time (04/26/18 12:12) Thyroid Analyzer (04/26/18 12:12) Troponin I (04/26/18 12:12) Ekg Tracing (04/26/18 12:12) Free T4 (Free Thyroxine) (04/26/18 11:30) Us Non Ob Transvaginal [id number] (04/26/18 12:12) Ct Abdomen/Pelvis W (04/26/18 14:40) Iohexol Injection (Omnipaque 350 Mg/Ml 1 (04/26/18 14:45) Ns (Ivpb) (Sodium Chloride 0.9%) (04/26/18 14:45) Hcg,Qualitative Urine (04/26/18 15:20) Ondansetron Injection (Zofran Injectio (04/26/18 15:35) Medications Given in ED Current Medications Medications Dose Ordered Sig/Roselyn Route Start Time Stop Time Status Last Admin Dose Admin Iohexol 100 ml ONCE ONCE IV 04/26/18 14:45 04/26/18 14:46 DC 04/26/18 14:58 100 ML Ondansetron HCl 4 mg ONCE ONCE IVP 04/26/18 12:15 04/26/18 12:16 DC 04/26/18 15:35 4 MG Sodium Chloride 250 ml ONCE ONCE IV 04/26/18 14:45 04/26/18 14:46 DC 04/26/18 14:59 80 ML Sodium Chloride 1,000 ml @ 0 mls/hr Q0M ONCE IV 04/26/18 10:39 04/26/18 10:41 DC 04/26/18 11:55 500 MLS/HR Vital Signs/I&O 04/26/18 10:40 Temp 95.7 Pulse 72 Resp 18 B/P (MAP) 110/70 (83) O2 Delivery Room Air Capillary Refill : Less Than 3 Seconds Blood Pressure Mean: 83 ECG Initial ECG Impression Date: April 26, 2018 Diagnostic Imaging Diagonstic Imaging: Ultrasound Plain Films/CT/US/NM/MRI: pelvis Comments US NON OB TRANSVAGINAL 18321 Indication: Heavy bleeding. TECHNIQUE: Multiple real-time grayscale images were obtained of the pelvis in various projections endovaginally. The uterus measures 9.8 x 6.7 x 4.9 cm. The interface between the endometrium and myometrium is markedly heterogeneous, limiting evaluation of endometrium. Endometrium appears to be approximately 8 mm, however, again this is limited in accuracy due to heterogeneity. No discrete myometrial or endometrial mass is seen. The ovaries were not visualized. No adnexal mass or free fluid is seen. Impression: There is marked endometrial heterogeneity with poor demarcation between the endometrium and myometrium. A mass within the endometrium cannot be entirely excluded and tissue sampling may be indicated. No other significant abnormality is seen. Dictated on workstation # [id number] Reviewed: Reviewed by Me (radiology report reviewed by me) Diagonstic Imaging: CT Plain Films/CT/US/NM/MRI: abdomen, pelvis Comments CT ABDOMEN/PELVIS W PROCEDURE: CT abdomen and pelvis with contrast. TECHNIQUE: Multiple contiguous axial images were obtained through the abdomen and pelvis after administration of intravenous contrast. INDICATION: Postprandial abdominal pain. Hypotension. Anemia. COMPARISON: 10/04/2016. FINDINGS: Included portions of the lung bases show 4 mm juxtapleural micronodular density within the lateral margins of the left lower lobe (image 6, series 2). This is table compared to exam dated 09/06/2015. CT ABDOMEN: Moderate air and stool is noted scattered throughout the colon. Small bowel loops are nondistended. Normal appendix is identified. The kidneys, adrenal glands, spleen, pancreas, and liver have a normal CT appearance. There is no loculated fluid collection, free fluid, nor free air within the abdomen. No abnormal mesenteric or retroperitoneal adenopathy is seen. Bony structures show no acute abnormalities. CT pelvis: Urinary bladder is grossly unremarkable. There is no loculated fluid collection, free fluid, nor free air within the pelvis. Note is made that the uterus appears somewhat prominent in size, as it measures 7.4 cm transversely x 5.5 cm in AP dimension x 10.7 cm in length. Otherwise, the uterus is otherwise incompletely assessed on this exam. Left adnexal cyst measures 2 cm. Right adnexal cyst is also identified and measures 1.5 cm. No abnormal adenopathy is seen within the pelvis. Bony structures show no acute abnormalities. IMPRESSION: 1. Bilateral ovarian cysts, left larger than right. 2. Uterine enlargement. Again, otherwise the uterus is suboptimally evaluated on this exam. If further evaluation is indicated, ultrasound is recommended. 3. Moderate colonic air and stool. Please correlate for constipation. Dictated on workstation # [id number] Reviewed: Reviewed by Me (Radiology report reviewed by me) Departure Communication (PCP) 1625 d/w dr. dickey Impression Primary Impression: Chronic anemia Additional Impressions: Menorrhagia Ovarian cyst, bilateral Uterine enlargement Disposition: 01 HOME, SELF-CARE Condition: Improved Departure-Patient Inst. Decision time for Depature: 16:36 Referrals: [facility] (PCP/Family) Primary Care Physician Patient Instructions: Heavy Periods (DC), Ovarian Cyst (DC) Add. Discharge Instructions: All discharge instructions reviewed with patient and/or family. Voiced understanding. Tylenol extra strength [id number] as directed for pain. Ibuprofen 800 mg by mouth every 8 hours as needed for pain. Drink plenty of fluids. Follow-up with [facility] on March 28 at 2:20 PM for recheck, repeat labs, and further management. Return to the emergency department for worsened symptoms, shortness of air, chest pain, dizziness, abdominal pain, vomiting, vomiting blood, rectal bleeding, black stools, or any other concerns. LISA LAWSON April 26, 2018 12:41
[2018-04-26 12:49] LABS: TSH (THYROID ANALYZER) 5.03 UIU/ML (0.35-4.94)
[2018-04-26 13:24] LABS: FREE T4 (FREE THYROXINE) 0.93 NG/DL (0.70-1.48)
[2018-04-26 13:28] LABS: BILIRUBIN,URINE NEGATIVE (NEGATIVE); CLARITY,URINE CLEAR; COLOR,URINE YELLOW; GLUCOSE, URINE (UA) NEGATIVE (NEGATIVE); KETONES,URINE NEGATIVE (NEGATIVE); LEUKOCYTE ESTERASE ,URINE NEGATIVE (NEGATIVE); NITRITE,URINE NEGATIVE (NEGATIVE); PH,URINE 6 (5-9); PROTEIN,URINE NEGATIVE (NEGATIVE); UROBILINOGEN,URINE NORMAL (NORMAL)
[2018-04-26 13:34] LABS: BACTERIA,URINE NEGATIVE /HPF
--- NOTE | 2018-04-26 14:15 | Diagnostic Imaging Report ---
Indication: Heavy bleeding. TECHNIQUE: Multiple real-time grayscale images were obtained of the pelvis in various projections endovaginally. The uterus measures 9.8 x 6.7 x 4.9 cm. The interface between the endometrium and myometrium is markedly heterogeneous, limiting evaluation of endometrium. Endometrium appears to be approximately 8 mm, however, again this is limited in accuracy due to heterogeneity. No discrete myometrial or endometrial mass is seen. The ovaries were not visualized. No adnexal mass or free fluid is seen. Impression: There is marked endometrial heterogeneity with poor demarcation between the endometrium and myometrium. A mass within the endometrium cannot be entirely excluded and tissue sampling may be indicated. No other significant abnormality is seen. Dictated by: Dictated on workstation # [id number]
[2018-04-26] MEDS ORDERED: NS 250 ML (IVPB) BAG IV ONE (14:45)
[2018-04-26] MEDS ORDERED: IOHEXOL 350 MG/ML 100 ML (OMNIPAQUE 350) VIAL IV ONE (14:45)
--- NOTE | 2018-04-26 15:31 | Diagnostic Imaging Report ---
PROCEDURE: CT abdomen and pelvis with contrast. TECHNIQUE: Multiple contiguous axial images were obtained through the abdomen and pelvis after administration of intravenous contrast. INDICATION: Postprandial abdominal pain. Hypotension. Anemia. COMPARISON: 10/04/2016. FINDINGS: Included portions of the lung bases show 4 mm juxtapleural micronodular density within the lateral margins of the left lower lobe (image 6, series 2). This is table compared to exam dated 09/06/2015. CT ABDOMEN: Moderate air and stool is noted scattered throughout the colon. Small bowel loops are nondistended. Normal appendix is identified. The kidneys, adrenal glands, spleen, pancreas, and liver have a normal CT appearance. There is no loculated fluid collection, free fluid, nor free air within the abdomen. No abnormal mesenteric or retroperitoneal adenopathy is seen. Bony structures show no acute abnormalities. CT pelvis: Urinary bladder is grossly unremarkable. There is no loculated fluid collection, free fluid, nor free air within the pelvis. Note is made that the uterus appears somewhat prominent in size, as it measures 7.4 cm transversely x 5.5 cm in AP dimension x 10.7 cm in length. Otherwise, the uterus is otherwise incompletely assessed on this exam. Left adnexal cyst measures 2 cm. Right adnexal cyst is also identified and measures 1.5 cm. No abnormal adenopathy is seen within the pelvis. Bony structures show no acute abnormalities. IMPRESSION: 1. Bilateral ovarian cysts, left larger than right. 2. Uterine enlargement. Again, otherwise the uterus is suboptimally evaluated on this exam. If further evaluation is indicated, ultrasound is recommended. 3. Moderate colonic air and stool. Please correlate for constipation. Dictated by: Dictated on workstation # [id number]
[2018-04-26] MEDS ORDERED: ONDANSETRON 4 MG/2 ML (SDV) Z0FRAN ONE (15:35)
[2018-04-26 16:55] VITALS: BP 112/68
== END 2018-04-26 16:55 | disposition home or self-care (01) ==
LOC: EDUNIT# 10:04 → ER 10:06
DX: D64.9 Anemia, unspecified (principal); N83.291 Other ovarian cyst, right side; N83.292 Other ovarian cyst, left side; N92.0 Excessive and frequent menstruation with regular cycle; N85.2 Hypertrophy of uterus; I25.2 Old myocardial infarction; G43.909 Migraine, unspecified, not intractable, without status migrainosus; K21.9 Gastro-esophageal reflux disease without esophagitis; F41.9 Anxiety disorder, unspecified; F32.9 Major depressive disorder, single episode, unspecified; Z91.5 Personal history of self-harm; Z80.41 Family history of malignant neoplasm of ovary; Z88.8 Allergy status to other drugs, medicaments and biological substances; Z87.19 Personal history of other diseases of the digestive system; Z98.51 Tubal ligation status
CPT/HCPCS: 36415; 74177; 76830; 80053; 81000; 84439; 84443; 84484; 84703; 85025; 85610; 85730; 86850; 86900; 86901; 86920; 93005; 96361; 96374

== ENCOUNTER 2018-05-31 17:47 | Emergency (ER) | payer MEDICARE, MEDICAID ==
[~2018-05-31] VITALS: Ht 157.5 cm; Wt 59.0 kg
[~2018-05-31 17:47] MED LIST changes: -CLON1TAB3 PO; +CLON1TAB4 PO; -SODI1POW MC; +SODI1POW PO; +TRAZ-189 PO; -TRAZ-28 PO
--- OUTSIDE RECORDS SUMMARY | 2018-05-31 17:51 | XMS REPORT | Clinical Summary ---
Author Author [facility] Organization [facility] Address Unknown Phone Unavailable Care Team Providers Care Director [employer] Name Role Phone Annmarie Srivastava PP Allergies [...] Varicella Vaccines (1 of 1987 2 - 2-dose adolescent series) DTaP,Tdap,and Td Vaccines 1993 (1 - Tdap) CERVICAL CANCER SCREENING 1995 Influenza Vaccine (#1) 2018 09/02/2016, 08/15/2015 Results Not on filefrom Last 3 Months
[2018-05-31] MEDS ORDERED: ASPIRIN 81 MG CHEW (CHILDREN'S ASA) PO ONE (18:15)
--- NOTE | 2018-05-31 18:16 | ED General ---
General Chief Complaint: General Problems/Pain Stated Complaint: SOA,WEAKNESS Nursing Triage Note: Pt reports CP x2 years and SOA with L sided pain starting today. Pt reports she sees a specialist for her "jerks and twitches" but states these twitches are more pronounced today. Pt states she began to feel pins and needles sensation in L arm and then became SOA. Pt also c/o numbness to bilat legs. Nursing Sepsis Screen: No Definite Risk Source of Information: Patient Exam Limitations: No Limitations History of Present Illness Date Seen by Provider: May 31, 2018 Time Seen by Provider: 18:14 Initial Comments Patient is a 42-year-old female who presents to the emergency room with complaints of chest pain for 2 years, shortness of breath and left arm pain that started today. She is very anxious during triage and is shaking, she reports that she always has shaking and jerking. It is worse today. She says she sees a specialist for her "jerks and twitches". Severity: Mild Associated Systoms: Chest Pain, Shortness of Air, Weakness Allergies and Home Medications Allergies Coded Allergies: metoprolol (Verified Allergy, Unknown, 08/13/15) Home Medications Bupropion HCl 100 Mg Tablet.er, 100 MG PO DAILY, (Reported) Clonazepam 1 Mg Tablet, 1 MG PO DAILY, (Reported) Ferrous Sulfate 325 Mg Tablet, 325 MG PO DAILY, (Reported) Mesalamine 1,000 Mg Supp.rect, 1,000 MG RC HS Prescribed by: RICA BOO NWDERIC on 03/15/17 1405 Pantoprazole Sodium 40 Mg Tablet.dr, 40 MG PO DAILY, (Reported) Sertraline HCl 100 Mg Tablet, 100 MG PO BID, (Reported) Sodium Sulfate 1 Gm Powder, 1 GM MC DAILY, (Reported) Trazodone HCl 50 Mg Tablet, 50 MG PO DAILY, (Reported) Patient Home Medication List Home Medication List Reviewed: Yes Review of Systems Constitutional: see HPI; No chills, No diaphoresis; dizziness, weakness EENTM: see HPI; No ear discharge, No hearing loss, No ear pain, No blurred vision, No double vision Respiratory: see HPI; No cough; short of breath; No stridor, No wheezing Cardiovascular: see HPI, chest pain; No Hx of Intervention, No palpitations, No syncope, No vascular heart diseas Gastrointestinal: see HPI; No abdominal pain, No constipation, No diarrhea, No nausea, No vomiting Genitourinary: see HPI; No decreased output, No discharge, No dysuria, No frequency Musculoskeletal: see HPI, other (left arm pain, numbness, tingling) Skin: see HPI; No change in color, No change in hair/nails Psychiatric/Neurological: See HPI, Anxiety; Denies Depressed, Denies Emotional Problems Hematologic/Lymphatic: See HPI; Denies Anemia, Denies Blood Clots Immunological/Allergic: see HPI; denies food allergy All Other Systems Reviewed Negative Unless Noted: Yes Past Tkbasid-Bnkjvt-Hlfdav Hx Past Med/Social Hx: Reviewed Nursing Past Med/Soc Hx Patient Social History Alcohol Use: Denies Use Recreational Drug Use: No Smoking Status: Never a Smoker Recent Foreign Travel: No Contact w/Someone Who Travel: No Recent Infectious Disease Expo: No Recent Hopitalizations: No Immunizations Up To Date Tetanus Booster (TDap): Less than 5yrs Seasonal Allergies Seasonal Allergies: No Past Medical History Surgeries: Yes (D&C) Gallbladder, Tubal Ligation Respiratory: No Currently Using CPAP: No Currently Using BIPAP: No 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 Neurological: Yes (sees specialist for "twitches/jerks") Headaches /Migraines Reproductive Disorders: No Female Reproductive Disorders: Ovarian 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 Sexually Transmitted Disease: No Genitourinary: No Gastrointestinal: Yes (celiac disease) Gastroesophageal Reflux, Chronic Diarrhea Musculoskeletal: No Endocrine: No Cancer: No Psychosocial: Yes Anxiety, Suicide Attempts, Depression Integumentary: No Blood Disorders: Yes (CHRONIC ANEMIA- RECEIVED IRON INJ X5 IN 2012) Adverse Reaction/Blood Tranf: No Family Medical History Reviewed Nursing Family Hx No Pertinent Family Hx Physical Exam Vital Signs Capillary Refill : Less Than 3 Seconds General Appearance: WD/WN, Anxious Eyes: Bilateral Eye Normal Inspection, Bilateral Eye PERRL, Bilateral Eye EOMI HEENT: PERRL/EOMI, TMs Normal, Normal ENT Inspection, Pharynx Normal Neck: Full Range of Motion, Normal Inspection, Non Tender, Supple Respiratory: Chest Non Tender, Lungs Clear, Normal Breath Sounds, No Accessory Muscle Use, No Respiratory Distress Cardiovascular: Regular Rate, Rhythm, No Edema, No Gallop, No JVD, No Murmur, Normal Peripheral Pulses Gastrointestinal: Normal Bowel Sounds, No Organomegaly, No Pulsatile Mass, Non Tender, Soft Back: Normal Inspection, No CVA Tenderness, No Vertebral Tenderness Extremity: Normal Capillary Refill, Normal Inspection, Normal Range of Motion, Non Tender, No Calf Tenderness, No Pedal Edema Neurologic/Psychiatric: Alert, Oriented x3, Other (patient is very anxious on exam.) Skin: Normal Color, Warm/Dry Lymphatic: No Adenopathy Progress/Results/Core Measures Suspected Sepsis Recent Fever Within 48 Hours: No Infection Criteria Present: None New/Unexplained Altered Menta: No Sepsis Screen: No Definite Risk SIRS Temperature:96.2 Pulse: 81 Respiratory Rate: 30 Blood Pressure 118 /82 Mean: 94 Results/Orders Lab Results My Orders Medications Given in ED Vital Signs/I&O Capillary Refill : Less Than 3 Seconds Blood Pressure Mean: 94 Progress Note : Time: 18:20 Progress Note Patient required verification that the aspirin that we're providing her with gluten-free. I tried to explain that her that gluten is a wheat based derivative is not likely to be found and aspirin. Patient continued to refuse the medication until the nursing operation shift supervisor verified this. 1904: Patient is much more relaxed at this time, she is no longer in pain, the Ativan seems to be helping with her anxiety, her shaking, and the numbness has resolved. 1917. Patient agrees with plans for discharge and close follow-up with [facility]. Her CBC is better today than it has been on her previous visits. She says she is scheduled for a total hysterectomy early next month and is aware of her anemia and is being managed by [facility]. ECG Initial ECG Impression Date: May 31, 2018 Initial ECG Impression Time: 18:03 Initial ECG Rate: 68 Initial ECG Rhythm: Normal Sinus Initial ECG Intervals: Normal Initial ECG Impression: Normal Initial ECG Comparisson: Unchanged Diagnostic Imaging Diagonstic Imaging: Xray Plain Films/CT/US/NM/MRI: chest Comments NAME: TRISH HARRIS [facility] REC#: [id number] PT STATUS: REG ER : 1975 PHYSICIAN: LANETTE MORALES ADMIT DATE: 05/31/18/ER Signed Date of Exam: 05/31/18 CHEST 1 VIEW, AP/PA ONLY CHEST 1 VIEW, AP/PA ONLY Indication: Chest pain. Comparison: 01/28/2015 Findings: No focal airspace disease in the visualized lungs. Please note that the posterior lower lobes are poorly evaluated by portable radiography. No pleural effusion or pneumothorax. Normal cardiomediastinal silhouette. Impression: No acute cardiopulmonary process by portable radiography. Dictated by: Dictated on workstation # [id number] Dict: 05/31/181851 Trans: 05/31/181852 Interpreted by: WHITNEY NASH MD Electronically signed by: WHITNEY NASH MD 05/31/181852 Reviewed: Reviewed by Me Departure Impression Primary Impression: Anxiety Disposition: 01 HOME, SELF-CARE Condition: Stable/Unchanged Departure-Patient Inst. Decision time for Depature: 19:17 Referrals: [facility]/K (PCP/Family) Primary Care Physician Patient Instructions: Anxiety, Adult (DC) Add. Discharge Instructions: Take your home medications as directed. Return back to the emergency room for any increased pain, nausea, vomiting, dizziness, or any other concerns as needed. Follow up with [facility] within 1 week. Call tomorrow morning for appointment time. All discharge instructions reviewed with patient and/or family. Voiced understanding. LANETTE MORALES May 31, 2018 18:15
[2018-05-31 18:22] LABS: BASOPHILS % (AUTO) 1 % (0-10); EOSINOPHILS # (AUTO) 0.1 10^3/uL (0.0-0.3); EOSINOPHILS % (AUTO) 2 % (0-10); HEMATOCRIT 29 % (35-52); HEMOGLOBIN 9.1 G/DL (11.5-16.0); LYMPHOCYTES # (AUTO) 3.8 X 10^3 (1.0-4.0); LYMPHOCYTES % (AUTO) 59 % (12-44); MEAN CORPUSCULAR HEMOGLOBIN 25 PG (25-34); MEAN CORPUSCULAR HGB CONC 32 G/DL (32-36); MEAN CORPUSCULAR VOLUME 79 FL (80-99); MEAN PLATELET VOLUME 10.9 FL (7.4-10.4); MONOCYTES # (AUTO) 0.8 X 10^3 (0.0-1.0); MONOCYTES % (AUTO) 12 % (0-12); NEUTROPHILS # (AUTO) 1.8 X 10^3 (1.8-7.8); NEUTROPHILS % (AUTO) 27 % (42-75); PLATELET COUNT 383 10^3/uL (130-400); RED CELL DISTRIBUTION WIDTH 17.8 % (10.0-14.5); WHITE BLOOD COUNT 6.5 10^3/uL (4.3-11.0)
[2018-05-31] MEDS ORDERED: LORazepam INJ 2 MG/ML (ATIVAN) VIAL IVP ONE (18:30)
[2018-05-31 18:35] LABS: PROTHROMBIN TIME PATIENT 13.1 SEC (12.2-14.7)
[2018-05-31] MEDS ORDERED: NS IV 1000 ML 1,000 ML IV SCH (18:45)
[2018-05-31 18:46] LABS: ALANINE AMINOTRANSFERASE 12 U/L (0-55); ALBUMIN 3.9 GM/DL (3.2-4.5); ALKALINE PHOSPHATASE 66 U/L (40-136); BILIRUBIN,TOTAL 0.2 MG/DL (0.1-1.0); BUN/CREATININE RATIO 10; CALCIUM 9.2 MG/DL (8.5-10.1); CARBON DIOXIDE 24 MMOL/L (21-32); CHLORIDE 104 MMOL/L (98-107); CREATININE SERUM 0.82 MG/DL (0.60-1.30); GFR ESTIMATED > 60; GLUCOSE 99 MG/DL (70-105); MAGNESIUM 2.1 MG/DL (1.8-2.4); POTASSIUM 3.5 MMOL/L (3.6-5.0); SODIUM 139 MMOL/L (135-145); TOTAL PROTEIN 7.4 GM/DL (6.4-8.2)
[2018-05-31 18:53] LABS: MYOGLOBIN SERUM 17.9 NG/ML (10.0-92.0)
--- NOTE | 2018-05-31 18:55 | Diagnostic Imaging Report ---
CHEST 1 VIEW, AP/PA ONLY Indication: Chest pain. Comparison: 01/28/2015 Findings: No focal airspace disease in the visualized lungs. Please note that the posterior lower lobes are poorly evaluated by portable radiography. No pleural effusion or pneumothorax. Normal cardiomediastinal silhouette. Impression: No acute cardiopulmonary process by portable radiography. Dictated by: Dictated on workstation # [id number]
[2018-05-31 19:30] VITALS: BP 108/70
[2018-06-15] MEDS ORDERED: HYDR-34 PO (10:13)
[2018-06-15] MEDS ORDERED: DOCU100C37 PO (10:13)
[2018-06-15] MEDS ORDERED: IBUP-844 PO (10:13)
[2018-06-15] MEDS ORDERED: SIME80TA16 PO (10:13)
== END 2018-05-31 19:30 | disposition home or self-care (01) ==
LOC: EDUNIT# 17:47 → ER 17:48
DX: F41.9 Anxiety disorder, unspecified (principal); I25.2 Old myocardial infarction; G43.909 Migraine, unspecified, not intractable, without status migrainosus; K21.9 Gastro-esophageal reflux disease without esophagitis; F32.9 Major depressive disorder, single episode, unspecified; D64.9 Anemia, unspecified; Z88.8 Allergy status to other drugs, medicaments and biological substances; Z98.51 Tubal ligation status
CPT/HCPCS: 36415; 71045; 80053; 83735; 83874; 84484; 85025; 85610; 85730; 93005; 93041; 96361; 96374

== ENCOUNTER 2018-06-12 10:32 | Outpatient (CLI) | payer MEDICARE, MEDICAID ==
[~2018-06-12] VITALS: Ht 160 cm; Wt 58.5 kg
[2018-06-12 10:41] VITALS: BP 107/69
[2018-06-15] MEDS ORDERED: SIME80TA16 PO (10:13)
[2018-06-15] MEDS ORDERED: IBUP-844 PO (10:13)
[2018-06-15] MEDS ORDERED: HYDR-34 PO (10:13)
[2018-06-15] MEDS ORDERED: DOCU100C37 PO (10:13)
== END 2018-06-12 11:05 | disposition home or self-care (01) ==
LOC: PREOP 10:32
PROVIDERS: ATTEND Obstetrics & Gynecology
DX: Z01.812 Encounter for preprocedural laboratory examination (principal); Z11.2 Encounter for screening for other bacterial diseases; N93.9 Abnormal uterine and vaginal bleeding, unspecified; D50.0 Iron deficiency anemia secondary to blood loss (chronic)
CPT/HCPCS: 84703; 87081

== ENCOUNTER 2018-06-15 08:45 | Day surgery (SDC) | payer MEDICARE, MEDICAID ==
[~2018-06-15] VITALS: Ht 160 cm; Wt 58.5 kg
--- NOTE | 2018-06-15 08:48 | Progress Note-Pre Operative ---
Pre-Operative Progress Note H&P Reviewed The H&P was reviewed, patient examined and no changes noted. Date Seen by Provider: Jun 15, 2018 Time Seen by Provider: 08:50 Date H&P Reviewed: Jun 15, 2018 Time H&P Reviewed: 09:00 Pre-Operative Diagnosis: AUB, Chronic blood loss anemia REAGAN MOTA DO Jun 15, 2018 8:48 am
[2018-06-15] MEDS ORDERED: BUPIVACAINE 0.25% 30 ML (SENSORCAINE) VIAL ONE (08:52)
[2018-06-15] MEDS ORDERED: metroNIDAZOLE 500MG/100ML IVPB 100 ML IV ONE (09:00)
[2018-06-15] MEDS ORDERED: FAMOTIDINE 20MG/2ML IV (PEPCID) IVP ONE (09:00)
[2018-06-15] MEDS ORDERED: ceFAZolin INJECTION 1,000 MG in NS (IVPB) 50 ML IV ONE (09:00)
[2018-06-15] MEDS ORDERED: metroNIDAZOLE 500MG/100ML IVPB 100 ML ONE (09:02)
[2018-06-15] MEDS ORDERED: ceFAZolin 1,000 MG (ANCEF) VIAL ONE (09:02)
[2018-06-15] MEDS ORDERED: NS (IVPB) 50 ML ONE (09:02)
[2018-06-15] MEDS ORDERED: ONDANSETRON 4 MG/2 ML (SDV) Z0FRAN ONE (09:06)
[2018-06-15] MEDS ORDERED: proPOfol 200 MG/20 ML (DIPRIVAN) VIAL IV ONE (09:06)
[2018-06-15] MEDS ORDERED: LIDOCAINE PF 2% 5 ML (XYLOCAINE) VIAL ONE (09:06)
[2018-06-15] MEDS ORDERED: SEVOFLURANE (ULTANE) 15 ML INHAL SOLN ONE (09:06)
[2018-06-15] MEDS ORDERED: fentaNYL INJECTION 100 MCG/2 ML AMP ONE ×2 (09:07→11:08)
[2018-06-15] MEDS ORDERED: DEXAMETHASONE 10 MG/ML (DECADRON) 1 ML VIAL ONE (09:10)
[2018-06-15] MEDS ORDERED: MIDAZOLAM 2 MG/2 ML (VERSED) VIAL ONE (09:10)
[2018-06-15] MEDS ORDERED: ROCURONIUM 10 MG/ML 5 ML SYRINGE IV ONE (09:10)
[2018-06-15 09:12] LABS: BASOPHILS % (AUTO) 0 % (0-10); EOSINOPHILS # (AUTO) 0.2 10^3/uL (0.0-0.3); EOSINOPHILS % (AUTO) 2 % (0-10); HEMATOCRIT 32 % (35-52); HEMOGLOBIN 10.2 G/DL (11.5-16.0); LYMPHOCYTES # (AUTO) 2.4 X 10^3 (1.0-4.0); LYMPHOCYTES % (AUTO) 33 % (12-44); MEAN CORPUSCULAR HEMOGLOBIN 25 PG (25-34); MEAN CORPUSCULAR HGB CONC 32 G/DL (32-36); MEAN CORPUSCULAR VOLUME 80 FL (80-99); MEAN PLATELET VOLUME 11.1 FL (7.4-10.4); MONOCYTES % (AUTO) 14 % (0-12); NEUTROPHILS # (AUTO) 3.6 X 10^3 (1.8-7.8); NEUTROPHILS % (AUTO) 51 % (42-75); PLATELET COUNT 330 10^3/uL (130-400); RED BLOOD COUNT 4.07 10^6/uL (4.35-5.85); RED CELL DISTRIBUTION WIDTH 18.9 % (10.0-14.5); WHITE BLOOD COUNT 7.1 10^3/uL (4.3-11.0)
[2018-06-15] MEDS ORDERED: CATHETER FLUSH 10 ML SYR IV PRN (09:15)
[2018-06-15] MEDS ORDERED: PROP10TA8 PO (09:16)
[2018-06-15] MEDS ORDERED: TIZA4CAP8 PO (09:16)
[2018-06-15] MEDS ORDERED: DIPH25CA6 PO (09:16)
[2018-06-15] MEDS ORDERED: DULO60CA58 PO (09:16)
[2018-06-15] MEDS ORDERED: GABA-486 PO (09:16)
[2018-06-15] MEDS ORDERED: SUCR1TAB PO (09:16)
[2018-06-15] MEDS: LACTATED RINGERS 1,000 ML IV PRN ×2 (09:18→10:39)
[2018-06-15] MEDS ORDERED: FAMOTIDINE 20MG/2ML IV (PEPCID) ONE (09:21)
[2018-06-15 09:40] VITALS: BP 101/75
[2018-06-15] MEDS ORDERED: LACTATED RINGERS 1,000 ML IV SCH (10:09)
--- NOTE | 2018-06-15 10:12 | Discharge Inst-Women's Service ---
Discharge Inst-Women's Serv Depart Medication/Instructions New, Converted or Re-Newed RX: RX on Chart Consults/Follow Up Additional Follow Up: Yes Orders/Referrals DR. Le in 7-10 days and in 8 weeks Activity Activity: Activity as Tolerated Driving Instructions: No Driving for 1 Week NO SMOKING: NO SMOKING Nothing Inside Vagina: No Douching, No [place], No Tampons Diet Discharge Diet: No Restrictions Symptoms to Report to : Bleeding Excessive, Pain Increased, Fever Over 101 Degrees F, Vaginal Bleeding Increase, Questions/Concerns For Any Problems or Questions: Contact Your Physician Skin/Wound Care Infection Signs and Symptoms: Increased Redness, Foul Odor of Wound, Increased Drainage, Skin Itchy or Has a Rash, Increased Swelling, Temperature Above 101 F Operative Area Clean and Dry: Keep Incision Clean/Dry Stitches/Yazmin/Dermabond: Dermabond, Care of Stitches Bathing Instructions: REAGAN Goldstein DO Jun 15, 2018 10:12 am
[2018-06-15] MEDS ORDERED: SIME80TA16 PO (10:13)
[2018-06-15] MEDS ORDERED: IBUP-844 PO (10:13)
[2018-06-15] MEDS ORDERED: DOCU100C37 PO (10:13)
[2018-06-15] MEDS ORDERED: HYDR-34 PO (10:13)
[2018-06-15] MEDS ORDERED: ANTACID SUSP 30 ML UDC (MYLANTA) PO PRN (10:15)
[2018-06-15] MEDS ORDERED: ZOLPIDEM 5 MG (AMBIEN) TAB PO PRN (10:15)
[2018-06-15] MEDS ORDERED: HYDROmorphone 1 MG/ML (DILAUDID) 1 ML SYRINGE IV PRN ×3 (10:15→12:30)
[2018-06-15] MEDS ORDERED: CHLORASEPTIC LOZENGE MM PRN (10:15)
[2018-06-15] MEDS ORDERED: ONDANSETRON 4 MG/2 ML (SDV) Z0FRAN IV PRN (10:15)
[2018-06-15] MEDS ORDERED: ONDANSETRON 4 MG/2 ML (SDV) Z0FRAN IVP PRN ×2 (10:30→12:30)
[2018-06-15] MEDS ORDERED: GLYCOPYRROLATE 0.2 MG/ML (ROBINUL) 2 ML VIAL ONE ×2 (11:27→12:04)
[2018-06-15] MEDS ORDERED: NEOSTIGMINE 1 MG/ML 5 ML SYRINGE ONE (11:27)
[2018-06-15] MEDS ORDERED: KETOROLAC 30 MG/ML VIAL ONE (12:07)
[2018-06-15] MEDS ORDERED: morphine INJ 10 MG/ML 1ML (SYR OR VIAL) ONE (12:07)
[2018-06-15] MEDS: KETOROLAC 30 MG/ML VIAL IV PRN ×2 (12:12→17:46)
[2018-06-15] MEDS: morphine INJ 10 MG/ML 1ML (SYR OR VIAL) IVP PRN ×2 (12:22→12:30)
[2018-06-15] MEDS ORDERED: morphine INJ 10 MG/ML 1ML (SYR OR VIAL) IVP PRN (12:30)
[2018-06-15 13:00] VITALS: BP 107/69
--- NOTE | 2018-06-15 13:25 | Anesthesia-General Post-Op ---
General Patient Condition Mental Status/LOC: Same as Preop Cardiovascular: Satisfactory Nausea/Vomiting: Absent Respiratory: Satisfactory Pain: Controlled Complications: Absent Post Op Complications Complications None Follow Up Care/Instructions Patient Instructions None needed. Anesthesia/Patient Condition Patient Condition Patient is doing well, no complaints, stable vital signs, no apparent adverse anesthesia problems. No complications reported per nursing. [place] [facility] [place] ISRAEL COLLAZO CRNA Jun 15, 2018 13:25
[2018-06-15 13:30] VITALS: BP 99/64
[2018-06-15 16:45] VITALS: BP 112/75
[2018-06-15] MEDS: HYDROcodone/APAP 7.5 MG/325 MG (LORTAB, LORCET PLUS) TABLET PO PRN ×2 (17:21→21:55)
[2018-06-15] MEDS: SIMETHICONE 80 MG (MYLICON) CHEW PO PRN (17:48)
[2018-06-15] MEDS ORDERED: PATIENT MAY USE OWN MEDS, ALL MC SCH (18:15)
--- NOTE | 2018-06-15 19:39 | OPERATIVE REPORT ---
DATE OF SERVICE: 06/15/2018 PREOPERATIVE DIAGNOSES: 1. A 42-year-old female with abnormal uterine bleeding -- menorrhagia. 2. Chronic blood loss anemia. POSTOPERATIVE DIAGNOSES: 1. A 42-year-old female with abnormal uterine bleeding -- menorrhagia. 2. Chronic blood loss anemia. PROCEDURE: 1. Robotic-assisted total laparoscopic hysterectomy with bilateral salpingectomy. 2. Hemorrhoidectomy. SURGEON: Cheo Le DO [place] OPERATOR: DAWNA Saha ANESTHESIA: General endotracheal. ESTIMATED BLOOD LOSS: 50 mL. URINE OUTPUT 20 mL clear at the end of the procedure. FLUIDS: 1800 mL lactated Ringer's solution. FINDINGS: A bulky hyperemic uterus with grossly normal bilateral fallopian tubes and ovaries. SPECIMEN SENT: Uterus, bilateral fallopian tubes. INDICATION FOR PROCEDURE: This 42-year-old female was a patient that has been seeking my care for this past year due to history of chronic blood loss anemia secondary to heavy periods. She underwent alternative treatment modalities in the past; however, was starting to have pelvic pressure and discomfort. Her uterus was found to be mildly enlarged on ultrasound. We discussed further conservative measures; however, in the past they have not gone very well for her and she has gotten to the point of chronic blood loss anemia requiring transfusion. Due to this fact, I discussed with the patient and offered hysterectomy. Risks of the procedure were discussed with the patient in detail including risks of bleeding, infection, damage to surrounding structures including, but not limited to bowel, bladder, ureter, kidneys, possible need for reoperation, possible risk from anesthesia and even . After everything was discussed with the patient, we discussed the pre and postoperative expectations as well as recovery time frame. All the questions were answered pertaining to this. Once all of her questions were answered to her satisfaction, consent was obtained and the patient was taken to the operating room. OPERATIVE REPORT IN DETAIL: Once in the operating room, general anesthesia was found to be adequate, was placed in dorsal lithotomy position, prepped and draped in normal sterile fashion. A Lou catheter was placed using sterile technique and a timeout was performed. At this point, the patient had remarked upon going back to the operating room about a "skin tag." There was a hemorrhoid noted at the 12 o'clock position on the external anal sphincter. At that point, I decided to do a hemorrhoidectomy at the patient's request. A pursestring suture using 3-0 Vicryl suture was then placed around the pedicle of the hemorrhoid and is tied down securing the blood supply and vasculature to the hemorrhoid. The hemorrhoid was then cut off using Dockery scissors after which I proceed with procedure as planned. A weighted speculum was inserted to the patient's vagina. A right angle retractor was used to visualize the cervix, which was grasped at 12 o'clock position using a long Allis clamp and placed an 0 Vicryl suture to the anterior lip of the cervix and removed the Allis clamp. The Vicryl suture was then used as my retraction point. I then gently sound the uterine cavity to depth, which was found to be 8 cm. I gently dilated the cervix using Hegar dilators to allow placement of the Paige uterine manipulator, which is an 8 cm Pagie uterine manipulator tip and a 4 cm colpotomy ring. I advanced this into the uterus deploying the balloon and placed a colpotomy ring around the vaginal fornix. Once this is in place, I am able to appreciate excellent bimanual manipulation. I then removed all the other instruments from the patient's vagina performing a change of gloves and taking my attention to the abdomen where infraumbilically I infiltrated this area using 0.25% Marcaine to make an 8 mm incision and direct a Veress needle through the incision until intraperitoneal placement was confirmed using saline drop test. Opening pressure of 4 mmHg was noted. I proceeded to maximum pressure of 15 mmHg, at which point I removed the Veress needle and introduced an 8 mm blunt da Jerry camera trocar. Once the cement was in place, I am able to confirm intraperitoneal placement using the da Jerry laparoscope. I then had the patient placed in steep Trendelenburg after a brief scan of the upper abdominal anatomy appears to be grossly normal. All my findings are described above. I then proceeded with placing the lateral trocars. These were both 8 mm trocars approximately 8 cm lateral to my infraumbilical trocar. The skin was infiltrated using 0.25% Marcaine. Incisions were made using a knife and the trocars were placed under direct visualization of the laparoscope. Once these trocars were in place, I bring in the da Jerry robot and docked it in appropriate fashion. I placed the vessel sealer in the left hand and monopolar pasha in the right hand. I then performed the following dissection bilaterally starting at the uteroovarian ligament, bipolar cauterized and transected using the vessel sealer. I then created a window in the mesosalpinx using monopolar pasha and take this laterally using the vessel sealer amputating the fallopian tube away from its surrounding blood supply in the mesosalpinx. I then grasped the round ligament, bipolar cauterized this and transected using the vessel sealer. I then am able to grasp the entire broad ligament, bipolar cauterized and transect this down to the level of the lower uterine segment using the vessel sealer at which point I the anterior and posterior leaflets of the broad ligament. The anterior leaflet was taken around the anterior vaginal fornix. Posterior leaflet was taken around the posterior vaginal fornix. This allows me to open up the lateral aspect of the uterus and skeletonize the uterine vessels as well as stay clear of the ureter. I then bipolar cauterized the uterine vessels and transected them using the vessel sealer. I then created a window in the anterior vaginal fornix by performing a colpotomy using the monopolar pasha and I take this circumferentially around the vaginal cuff amputating the cervix away from the vaginal fornix. The uterus, cervix and bilateral fallopian tubes were then removed through the vagina. I then proceeded with closing the lateral vaginal apices of the vaginal cuff using 2-0 Vicryl suture in a [id number] fashion, copiously spinning them to the uterosacral ligaments. I then closed the remaining opening of the vaginal cuff using 2-0 V-Loc in a running fashion, after which there was no active bleeding noted from any of my dissection planes. I then undocked the da Jerry robot and proceeded with the remainder of the case laparoscopically. I copiously irrigated the pelvis using normal saline. Once again, there was no active bleeding noted from any of my dissection planes. I placed FloSeal hemostatic nature over all my planes of dissection and take the patient out of steep Trendelenburg where I removed the lateral trocars under direct visualization of the laparoscope. The infraumbilical trocar was left in place to release insufflation and to introduce 10 mL of 0.25% Marcaine for postoperative pain management into the peritoneal cavity. This trocar was then removed. The skin was reapproximated using 4-0 Monocryl in interrupted subcuticular stitch. Dermabond was applied to the incision and sterile Band-Aids were placed over these. Lou catheter was left in place. The patient tolerated the procedure well and taken to recovery area in stable condition. Lap and sponge counts were correct at the end of the procedure. Instrument count was correct as well. 2 grams of Ancef, 500 mg of Flagyl were given preoperatively for infection prophylaxis. Job ID: [id number] DocumentID: [id number] Dictated Date: 06/15/2018 11:40:28 Store Associate Date: 06/15/2018 19:38:46 Dictated By: CHEO LE DO
[2018-06-15] MEDS ORDERED: traZODone 150 MG (DESYREL) TABLET PO SCH (21:00)
[2018-06-15] MEDS ORDERED: traZODone 150 MG (DESYREL) TABLET PO ONE (21:00)
[2018-06-15] MEDS ORDERED: CYMBALTA 60 MG PO SCH (21:00)
[2018-06-15] MEDS ORDERED: diphenhydrAMINE 25 MG TAB (BENADRYL) PO SCH (21:00)
[2018-06-15 21:10] VITALS: BP 125/70
[2018-06-15] MEDS: GABAPENTIN 100 MG (NEURONTIN) CAP PO SCH (21:14)
[2018-06-15] MEDS: DOCUSATE SODIUM 100 MG (COLACE) CAP PO PRN (21:55)
[2018-06-16] MEDS ORDERED: KETOROLAC 30 MG/ML VIAL ONE (00:14)
[2018-06-16 00:25] VITALS: BP 77/53
[2018-06-16] MEDS: KETOROLAC 30 MG/ML VIAL IV PRN (00:25)
[2018-06-16 04:10] VITALS: BP 83/53
[2018-06-16] MEDS: IBUPROFEN 600 MG (MOTRIN) TAB PO PRN ×2 (06:04→12:14)
[2018-06-16] MEDS: HYDROcodone/APAP 7.5 MG/325 MG (LORTAB, LORCET PLUS) TABLET PO PRN (08:43)
[2018-06-16] MEDS: DOCUSATE SODIUM 100 MG (COLACE) CAP PO PRN (08:43)
[2018-06-16] MEDS: GABAPENTIN 100 MG (NEURONTIN) CAP PO SCH (08:43)
[2018-06-16 08:53] VITALS: BP 105/60
[2018-06-16] MEDS: SIMETHICONE 80 MG (MYLICON) CHEW PO PRN (08:53)
== END 2018-06-16 12:40 | disposition home or self-care (01) ==
LOC: SDC 08:45 → WS 13:47 → SDC 06-16 12:40
PROVIDERS: ATTEND Obstetrics & Gynecology
DX: N92.0 Excessive and frequent menstruation with regular cycle (principal); N80.0 Endometriosis of uterus; D25.9 Leiomyoma of uterus, unspecified; N83.8 Other noninflammatory disorders of ovary, fallopian tube and broad ligament; D50.0 Iron deficiency anemia secondary to blood loss (chronic); K64.4 Residual hemorrhoidal skin tags
CPT/HCPCS: 36415; 84703; 85025; 86850; 86900; 86901; 94664

== ENCOUNTER 2018-12-07 19:53 | Emergency (ER) | payer MEDICARE, MEDICAID ==
[~2018-12-07] VITALS: Ht 160 cm; Wt 63.5 kg
[~2018-12-07 19:53] MED LIST changes: +CLON1TAB13 PO; -CLON1TAB4 PO; +DIPH25CA6 PO; +DOCU100C37 PO; +DULO60CA58 PO; +GABA-486 PO; +HYDR-34 PO; +IBUP-844 PO; +PROP10TA8 PO; +SIME80TA16 PO; +SUCR1TAB PO; +TIZA4CAP8 PO
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
--- OUTSIDE RECORDS SUMMARY | 2018-12-07 19:58 | XMS REPORT | Clinical Summary ---
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
--- OUTSIDE RECORDS SUMMARY | 2018-12-07 20:10 | XMS REPORT | Continuity of Care Document ---
Author Author [facility] Address Unknown Phone Unavailable Allergies Active Description Code Type Severity Reaction Onset Reported/Identified Relationship to Patient Clinical Status Yes No Known Drug Allergies [id number] Drug Allergy Unknown N/A 05/23/2013 Yes Topamax 50 mg tablet Drug Allergy N/A N/A 02/05/2015 Yes metoprolol [id number] Drug Allergy Unknown N/A 08/13/2015 Yes TOPROLOL TOPROLOL Unknown N/A 08/13/2015 Yes METOPROLOL 4879 DRUG INGREDI N/ A N&V 08/15/2015 Yes METOPROLOL 12819 DRUG INGREDI N /A NTV 08/15/2015 Yes GLUTEN MEAL 6715 DRUG INGREDI~Food N/A N&V 09/01/2016 09/01/2016 Yes GLUTEN MEAL 50927 DRUG INGREDI~Food N/A NTV 09/01/2016 Yes gluten [id number] Drug Allergy Unknown NAUSEA 06/15/2018 Medications Medication Packaging Start Date Stop Date [...] LABRUM LESION OF LEFT S 10/27/1443 ROBERT SMITHP Ot X58.XXXA EXPOSURE TO OTHER SPECIFIED FACTORS, [...] SITE 09/18/2013 JUSTEN DE LA CRUZ APRN 789.00 ABDOMINAL PAIN UNSPECIFIED SITE 09/18/2013 JONO MANAGER COSMETICS, JUSTEN A V73.81 HPV SCREENING 09/18/2013 JONO MANAGER COSMETICS, JUSTEN A V76.10 BREAST CANCER SCREENING 09/18/2013 JONO MANAGER COSMETICS, JUSTEN A V76.2 CERVICAL CANCER SCREENING (PAP SMEAR) 09/18/2013 QUINONES DO EWA K 789.00 ABDOMINAL PAIN UNSPECIFIED SITE 09/18/2013 QUINONES DO EWA K V73.81 HPV SCREENING 09/18/2013 QUINONES DO EWA K V76.10 BREAST CANCER SCREENING 09/18/2013 QUINONES DO, EWA K V76.2 CERVICAL CANCER SCREENING (PAP SMEAR) 09/18/2013 QUINONES DO, EWA K 789.00 ABDOMINAL PAIN UNSPECIFIED SITE 09/18/2013 QUINONES DO, EWA K V73.81 HPV SCREENING 09/18/2013 QUINONES DO, EWA K V76.10 BREAST CANCER SCREENING 09/18/2013 QUINONES DO EWA K V76.2 CERVICAL CANCER SCREENING (PAP SMEAR) 09/18/2013 QUINONES DO EWA K 789.00 ABDOMINAL PAIN UNSPECIFIED SITE 09/18/2013 QUINONES DO, EWA K V73.81 HPV SCREENING 09/18/2013 QUINONES DO, EWA K V76.10 BREAST CANCER SCREENING 09/18/2013 QUINONES DO, EWA K V76.2 CERVICAL CANCER SCREENING (PAP SMEAR) 09/18/2013 MADL MANAGER COSMETICS, RACHELE L 789.00 ABDOMINAL PAIN UNSPECIFIED SITE 09/18/2013 MADL MANAGER COSMETICS, RACHELE L V73.81 HPV SCREENING 09/18/2013 MADL MANAGER COSMETICS, RACHELE L V76.10 BREAST CANCER SCREENING 09/18/2013 MADL MANAGER COSMETICS, RACHELE L V76.2 CERVICAL CANCER SCREENING (PAP SMEAR) 09/18/2013 QUINONES DO, EWA K 789.00 ABDOMINAL PAIN UNSPECIFIED SITE 09/18/2013 QUINONES DO, EWA K V73.81 HPV SCREENING 09/18/2013 QUINONES DO, EWA K V76.10 BREAST CANCER SCREENING 09/18/2013 QUINONES DO, EWA K V76.2 CERVICAL CANCER SCREENING (PAP SMEAR) 09/18/2013 QUINONES DO EWA K 789.00 ABDOMINAL PAIN UNSPECIFIED SITE 09/18/2013 QUINONES DO EWA K V73.81 HPV SCREENING 09/18/2013 EMILIANO QUINONES DOA K V76.10 BREAST CANCER SCREENING 09/18/2013 EMILIANO QUINONES DOA K V76.2 CERVICAL CANCER SCREENING (PAP SMEAR) 09/18/2013 AYLA MANAGER COSMETICS, DUC R 789.00 ABDOMINAL PAIN UNSPECIFIED SITE 09/18/2013 AYLA MANAGER COSMETICS, DUC R V73.81 HPV SCREENING 09/18/2013 AYLA MANAGER COSMETICS, DUC R V76.10 BREAST CANCER SCREENING 09/18/2013 AYLA MANAGER COSMETICS, DUC R V76.2 CERVICAL CANCER SCREENING (PAP SMEAR) 09/18/2013 MADL MANAGER COSMETICS, RACHELE L 789.00 ABDOMINAL PAIN UNSPECIFIED SITE 09/18/2013 MADL MANAGER COSMETICS, RACHELE L V73.81 HPV SCREENING 09/18/2013 MADL MANAGER COSMETICS, RACHELE L V76.10 BREAST CANCER SCREENING 09/18/2013 MADL MANAGER COSMETICS, RACHELE L V76.2 CERVICAL CANCER SCREENING (PAP SMEAR) 09/18/2013 EWA QUINONES DO K 789.00 ABDOMINAL PAIN UNSPECIFIED SITE 09/18/2013 EWA QUINONES DO K V73.81 HPV SCREENING 09/18/2013 EWA QUINONES DO K V76.10 BREAST CANCER SCREENING 09/18/2013 EMILIANO QUINONES DOA K V76.2 CERVICAL CANCER SCREENING (PAP SMEAR) 09/18/2013 DOROTHY LIMONMF, RADHAMES W 789.00 ABDOMINAL PAIN UNSPECIFIED SITE 09/18/2013 DOROTHY LIMONMF, RADHAMES Cabrera V73.81 HPV SCREENING 09/18/2013 DOROTHY HERNANDEZF, RADHAMES W V76.10 BREAST CANCER SCREENING 09/18/2013 DOROTHY LIMONMF, RADHAMES W V76.2 CERVICAL CANCER SCREENING (PAP SMEAR) 11/12/2013 GEORGIA SKINNER, NATHAN Galeana Ot 280.9 11/12/2013 GEORGIA SKINNER, NATHAN Galeana Ot 535.50 11/12/2013 GEORGIA SKINNER, NATHAN Galeana Ot 780.4 11/12/2013 GEORGIA SKINNER, NATHAN Galeana Ot 784.0 11/12/2013 GEORGIA SKINNER, NATHAN Galeana Ot V58.69 02/28/2014 EWA QUINONES DO 311 DEPRESSIVE DISORDER NOT ELSEWHERE CLASSIFIED 02/28/2014 EWA QUINONES DO 455.6 HEMORRHOIDS NOS 02/28/2014 QUINONES DO, EWA [...] DO, EWA K 784.0 HEADACHE 02/28/2014 MADL MANAGER COSMETICS, RACHELE L 311 DEPRESSIVE DISORDER NOT ELSEWHERE CLASSIFIED 02/28/2014 MADL MANAGER COSMETICS, RACHELE L 455.6 HEMORRHOIDS NOS 02/28/2014 MADL MANAGER COSMETICS, RACHELE L 530.81 ESOPHAGEAL REFLUX 02/28/2014 MADL MANAGER COSMETICS, RACHELE L 579.0 CELIAC DISEASE 02/28/2014 MADL MANAGER COSMETICS, RACHELE L 784.0 HEADACHE 02/28/2014 QUINONES DO, [...] K 784.0 HEADACHE 02/28/2014 DUC AGUILA APRN 311 DEPRESSIVE DISORDER NOT ELSEWHERE CLASSIFIED 02/28/2014 AYLA MANAGER COSMETICS, DUC R 455.6 HEMORRHOIDS NOS 02/28/2014 AYLA MANAGER COSMETICS, DUC R 530.81 ESOPHAGEAL REFLUX 02/28/2014 AYLA MANAGER COSMETICS, DUC R 579.0 CELIAC DISEASE 02/28/2014 AYLA MANAGER COSMETICS, DUC R 784.0 HEADACHE 02/28/2014 MADL MANAGER COSMETICS, RACHELE L 311 DEPRESSIVE DISORDER NOT ELSEWHERE CLASSIFIED 02/28/2014 MADL MANAGER COSMETICS, RACHELE L 455.6 HEMORRHOIDS NOS 02/28/2014 MADL MANAGER COSMETICS, RACHELE L 530.81 ESOPHAGEAL REFLUX 02/28/2014 MADL MANAGER COSMETICS, RACHELE L 579.0 CELIAC DISEASE 02/28/2014 MADL MANAGER COSMETICS, RACHELE L 784.0 HEADACHE 02/28/2014 QUINONES DO EWA K 311 DEPRESSIVE DISORDER NOT ELSEWHERE CLASSIFIED 02/28/2014 EMILIANO QUINONES DOA K 455.6 HEMORRHOIDS NOS 02/28/2014 QUINONES DO EWA K 530.81 ESOPHAGEAL REFLUX 02/28/2014 JONI ONEAL EWA K 579.0 CELIAC DISEASE 02/28/2014 JONI ONEAL EWA K 784.0 HEADACHE 02/28/2014 DOROTHYDIYA HERNANDEZF, RADHAMES W 311 DEPRESSIVE DISORDER NOT ELSEWHERE CLASSIFIED 02/28/2014 DOROTHY HERNANDEZF, RADHAMES W 455.6 HEMORRHOIDS NOS 02/28/2014 DOROTHY LCMF, RADHAMES W 530.81 ESOPHAGEAL REFLUX 02/28/2014 DOROTHYDIYA HERNANDEZF, RADHAMES W 579.0 CELIAC DISEASE 02/28/2014 DOROTHY LCF, RADHAMES W 784.0 HEADACHE 06/11/2014 EMILIANO QUINONES DOA K 719.43 PAIN IN JOINT INVOLVING FOREARM 06/11/2014 RACHELE LEE APRN L 719.43 PAIN IN JOINT INVOLVING FOREARM 06/11/2014 EWA QUINONES DO K 719.43 PAIN IN JOINT INVOLVING FOREARM 06/11/2014 EMILIANO QUINONES DOA K 719.43 PAIN IN JOINT INVOLVING FOREARM 06/11/2014 DUC AGUILA APRN R 719.43 PAIN IN JOINT INVOLVING FOREARM 06/11/2014 RACHELE LEE APRN 719.43 PAIN IN JOINT INVOLVING FOREARM 06/11/2014 EWA QUINONES DO K 719.43 PAIN IN JOINT INVOLVING FOREARM 06/11/2014 DOROTHY LCMF, RADHAMES Cabrera 719.43 PAIN IN JOINT INVOLVING FOREARM 06/18/2014 FANG ONEALTAZ Ot 842.00 SPRAIN OF WRIST NOS 06/18/2014 FANG TAZ ONEAL Ot E928.9 ACCIDENT NOS 06/27/2014 QUINONES DO, EWA K 842.00 SPRAIN OF UNSPECIFIED SITE OF WRIST 06/27/2014 QUINONES DO, EWA K 842.00 SPRAIN OF UNSPECIFIED SITE OF WRIST 06/27/2014 AYLA MANAGER COSMETICS, DUC R 842.00 SPRAIN OF UNSPECIFIED SITE OF WRIST 06/27/2014 MADL MANAGER COSMETICS, RACHELE L 842.00 SPRAIN OF UNSPECIFIED SITE OF WRIST 06/27/2014 QUINONES DO, EWA K 842.00 SPRAIN OF UNSPECIFIED SITE OF WRIST 06/27/2014 DOROTHY LIMONMF, RADHAMES Cabrera 842.00 SPRAIN OF UNSPECIFIED SITE OF WRIST 09/04/2014 MADL MANAGER COSMETICS, RACHELE L 276.51 DEHYDRATION 09/04/2014 MADL MANAGER COSMETICS, RACHELE L 787.01 NAUSEA WITH VOMITING 09/04/2014 QUINONES DO, EWA K 276.51 DEHYDRATION 09/04/2014 QUINONES DO, EWA K 787.01 NAUSEA WITH VOMITING 09/04/2014 DOROTHY BRAXTONMF, RADHAMES W 276.51 DEHYDRATION 09/04/2014 DOROTHY LIMONMF, RADHAMES W 787.01 NAUSEA WITH VOMITING 11/03/2014 FATMATA SKINNER, TAKAAKI Ot V72.84 11/03/2014 SALVATORE ORTIZ MD Ot 787.01 NAUSEA WITH VOMITING 11/03/2014 SALVATORE ORTIZ MD Ot 789.00 ABDOMINAL PAIN, UNSPECIFIED SITE 01/08/2015 GEORGIA SKINNER, NATHAN Galeana Ot 780.4 01/08/2015 GEOR[place] SKINNER, NATHAN Galeana Ot 784.0 01/28/2015 Ot 786.50 CHEST PAIN NOS 01/28/2015 Ot 786.52 PAINFUL RESPIRATION 02/05/2015 DOROTHY HERNANDEZF, RADHAMES Cabrera 296.22 MO DEPRESSIVE SINGLE MODERATE 02/05/2015 DOROTHY LIMONMF, RADHAMES Cabrera 300.00 AN ANXIETY UNSPEC 02/05/2015 DOROTHY LIMONMF, RADHAMES W 780.79 OTHER MALAISE AND FATIGUE 02/05/2015 DOROTHY HERNANDEZF, RADHAMES W 785.1 PALPITATIONS 02/06/2015 DOROTHY BRAXTONDeenaF, RADHAMES W 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 SEVERE [...] LEONARDO Mendoza Ot 965.09 POISONING-OPIATES NEC 08/15/2015 LEONARDO WHITE MD Ot 967.8 POIS-SEDATIVE/HYPNOT NEC 08/15/2015 LEONARDO WHITE MD Ot E000.8 OTHER EXTERNAL CAUSE STATUS 08/15/2015 LEONARDO WHITE MD Ot E950.0 SUICIDE-ANALGESICS 08/15/2015 LEONARDO WHITE MD Ot E950.2 SUICIDE-SEDAT/HYPNOTIC 08/15/2015 LEONARDO WHITE MD Ot E956 DEEPTHI/SELF-INJ BY CUT INST 08/27/2015 FATMATA SKINNER, ROCK Ot 530.11 08/27/2015 FATMATA SKINNER, ROCK Ot 535.50 08/27/2015 FATMATA SKINNER, ROCK Ot 535.60 08/27/2015 FATMATA SKINNER, TAKAAKI Ot 553.3 08/27/2015 FATMATA SKINNER, ROCK Ot [...] DO Ot F41.9 ANXIETY DISORDER, UNSPECIFIED 12/12/2015 CRANE BETTYE ONEAL Ot S31.105A UNSP OPN WND ABD WALL, [...] 09/07/2016 ASHLEY VILLASENOR P R45.851 Suicidal ideations JULIET VILLASENORLA 10/04/2016 MEG CHUNG APRN Ot S29.9XXA UNSPECIFIED [...] OF LEFT SHOULDER AND UPPER A 10/05/2016 MGE CHUNG APRN Ot S50.12XA CONTUSION OF LEFT [...] UNSP ROTATR-CUFF TEAR/RUPTR OF LEFT SHOU 01/17/2017 NATHAN HO MD Ot 780.4 DIZZINESS AND GIDDINESS 01/17/2017 NATHAN [...] MD Ot 784.0 HEADACHE 01/26/2017 ROBERT SMITH LANDSCAPE ACCOUNT MANAGER Ot M75.102 UNSP ROTATR-CUFF TEAR/RUPTR OF LEFT SHOU 01/26/2017 ROBERT SMITH LANDSCAPE ACCOUNT MANAGER Ot M75.102 UNSP ROTATR-CUFF TEAR/RUPTR OF LEFT [...] OTHER EXTERNAL CAUSE STATUS 03/01/2017 ROBERT SMITH Ot M75.102 UNSP ROTATR-CUFF TEAR/RUPTR [...] MD Ot 784.0 HEADACHE 03/11/2017 ROBERT SMITH Ot M75.102 UNSP ROTATR-CUFF TEAR/RUPTR OF LEFT SHOU 03/14/2017 ROYCE DOBETTYE D Ot K21.9 GASTRO-ESOPHAGEAL REFLUX DISEASE WITHOUT 03/14/2017 CRANE DO, BETTYE D Ot K92.1 MELENA 03/14/2017 RAHUL CRANE DOTT D Ot Z01.818 ENCOUNTER FOR OTHER PREPROCEDURAL EXAMIN 03/15/2017 RAHUL CRANE DOTT D Ot K21.9 GASTRO-ESOPHAGEAL REFLUX DISEASE WITHOUT 03/15/2017 CRANE DO, BETTYE D Ot K29.70 GASTRITIS, UNSPECIFIED, WITHOUT BLEEDING 03/15/2017 CRANE DO BETTYE D Ot K92.1 MELENA 03/23/2017 ROBERT SMITH Ot 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 S 03/23/2017 ROBERT SMITH Ot X58.XXXA EXPOSURE TO OTHER SPECIFIED FACTORS, INI 03/23/2017 ROBERT SMITH LANDSCAPE ACCOUNT MANAGER Ot Y99.8 OTHER EXTERNAL CAUSE STATUS 03/27/2017 BETTYE CRANE DO D Ot K21.9 GASTRO-ESOPHAGEAL REFLUX DISEASE WITHOUT 03/27/2017 CRANE DO, BETTYE D Ot K29.70 GASTRITIS, UNSPECIFIED, WITHOUT BLEEDING 03/27/2017 BTETYE CRANE DO D Ot K92.1 MELENA 05/09/2017 ROBERT SMITH Ot 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 S 05/09/2017 ROBERT SMITH Ot X58.XXXA EXPOSURE TO OTHER SPECIFIED FACTORS, INI 05/09/2017 ROBERT SMITH LANDSCAPE ACCOUNT MANAGER Ot Y99.8 OTHER EXTERNAL CAUSE STATUS 08/02/2017 RAHUL CRANE DOTT D Ot K21.9 GASTRO-ESOPHAGEAL REFLUX DISEASE WITHOUT 08/02/2017 CRANEMIKO ONEAL BETTYE D Ot K29.70 GASTRITIS, UNSPECIFIED, WITHOUT BLEEDING 08/02/2017 ROYCE ONEAL BETTYE D Ot K92.1 MELENA 04/26/2018 LISA SILVA Ot D64.9 ANEMIA, UNSPECIFIED 04/26/2018 LISA SILVA Ot F32.9 MAJOR DEPRESSIVE DISORDER, SINGLE EPISOD 04/26/2018 LISA SILVA Ot F41.9 ANXIETY DISORDER, UNSPECIFIED 04/26/2018 LISA SILVA Ot G43.909 MIGRAINE, UNSP, NOT INTRACTABLE, WITHOUT 04/26/2018 LISA SILVA Ot I25.2 OLD MYOCARDIAL INFARCTION 04/26/2018 LISA SILVA Ot K21.9 GASTRO-ESOPHAGEAL REFLUX DISEASE WITHOUT 04/26/2018 LISA SILVA Ot N83.291 OTHER OVARIAN CYST, RIGHT SIDE 04/26/2018 LISA SILVA Ot N83.292 OTHER OVARIAN CYST, LEFT SIDE 04/26/2018 LISA SILVA Ot N85.2 HYPERTROPHY OF UTERUS 04/26/2018 LISA SILVA Ot N92.0 EXCESSIVE AND FREQUENT MENSTRUATION WITH 04/26/2018 LISA SILVA Ot R53.1 WEAKNESS 04/26/2018 LISA SILVA Ot Z80.41 FAMILY HISTORY OF MALIGNANT NEOPLASM OF 04/26/2018 LISA SILVA Ot Z87.19 PERSONAL HISTORY OF OTHER DISEASES OF 04/26/2018 LISA SILVA Ot Z88.8 ALLERGY STATUS TO OTH DRUG/MEDS/BIOL SUB 04/26/2018 LISA SILVA Ot Z91.5 PERSONAL HISTORY OF SELF-HARM 04/26/2018 LISA SILVA Ot Z98.51 TUBAL LIGATION STATUS 04/28/2018 LISA SILVA Ot D64.9 ANEMIA, UNSPECIFIED 04/28/2018 LISA SILVA Ot F32.9 MAJOR DEPRESSIVE DISORDER, SINGLE EPISOD 04/28/2018 LISA SILVA Ot F41.9 ANXIETY DISORDER, UNSPECIFIED 04/28/2018 LISA SILVA Ot G43.909 MIGRAINE, UNSP, NOT INTRACTABLE, WITHOUT 04/28/2018 LISA SILVA Ot I25.2 OLD MYOCARDIAL INFARCTION 04/28/2018 LISA SILVA Ot K21.9 GASTRO-ESOPHAGEAL REFLUX DISEASE WITHOUT 04/28/2018 LISA SILVA Ot N83.291 OTHER OVARIAN CYST, RIGHT SIDE 04/28/2018 LISA SILVA Ot N83.292 OTHER OVARIAN CYST, LEFT SIDE 04/28/2018 LISA SILVA Ot N85.2 HYPERTROPHY OF UTERUS 04/28/2018 RENNY PA, LISA L Ot N92.0 EXCESSIVE AND FREQUENT MENSTRUATION WITH 04/28/2018 LISA SILVA Ot R53.1 WEAKNESS 04/28/2018 LISA SILVA Ot Z80.41 FAMILY HISTORY OF MALIGNANT NEOPLASM OF 04/28/2018 LISA SILVA Ot Z87.19 PERSONAL HISTORY OF OTHER DISEASES OF TH 04/28/2018 LISA SILVA Ot Z88.8 ALLERGY STATUS TO OTH DRUG/MEDS/BIOL SUB 04/28/2018 LISA SILVA Ot Z91.5 PERSONAL HISTORY OF SELF-HARM 04/28/2018 LISA SILVA Ot Z98.51 TUBAL LIGATION STATUS 05/31/2018 LANETTE MORALES Ot D64.9 ANEMIA, UNSPECIFIED 05/31/2018 DORENE MORALESIS Ot F32.9 MAJOR DEPRESSIVE DISORDER, SINGLE EPISOD 05/31/2018 DORENE MORALESIS Ot F41.9 ANXIETY DISORDER, UNSPECIFIED 05/31/2018 CARMEN LANETTE Ot G43.909 MIGRAINE, UNSP, NOT INTRACTABLE, WITHOUT 05/31/2018 BERNOT, LANETTE Ot I25.2 OLD MYOCARDIAL INFARCTION 05/31/2018 BERNOT, LANETTE Ot K21.9 GASTRO-ESOPHAGEAL REFLUX DISEASE WITHOUT 05/31/2018 BERNOT, LANETTE Ot R06.02 SHORTNESS OF BREATH 05/31/2018 CARMEN LANETTE Ot Z88.8 ALLERGY STATUS TO OTH DRUG/MEDS/BIOL SUB 05/31/2018 DORENE MORALESIS Ot Z98.51 TUBAL LIGATION STATUS 06/02/2018 DORENE MORALESIS Ot D64.9 ANEMIA, UNSPECIFIED 06/02/2018 DORENE MORALESIS Ot F32.9 MAJOR DEPRESSIVE DISORDER, SINGLE EPISOD 06/02/2018 BERNOT LANETTE Ot F41.9 ANXIETY DISORDER, UNSPECIFIED 06/02/2018 BERNOT, LANETTE Ot G43.909 MIGRAINE, UNSP, NOT INTRACTABLE, WITHOUT 06/02/2018 BERNOT, LANETTE Ot I25.2 OLD MYOCARDIAL INFARCTION 06/02/2018 CARMEN LANETTE Ot K21.9 GASTRO-ESOPHAGEAL REFLUX DISEASE WITHOUT 06/02/2018 BERNOT, LANETTE Ot R06.02 SHORTNESS OF BREATH 06/02/2018 CARMEN LANETTE Ot Z88.8 ALLERGY STATUS TO OTH DRUG/MEDS/BIOL SUB 06/02/2018 LANETTE MORALES Ot Z98.51 TUBAL LIGATION STATUS 06/13/2018 SVETLANA REAGAN ONEAL Ot D50.0 IRON DEFICIENCY ANEMIA SECONDARY TO BLOO 06/13/2018 SVETLANA ONEALREAGAN Ot N93.9 ABNORMAL UTERINE AND VAGINAL BLEEDING, U 06/13/2018 SVETLANA ONEAL REAGAN August Ot Z01.812 ENCOUNTER FOR PREPROCEDURAL LABORATORY E 06/13/2018 SVETLANA ONEALREAGAN Ot Z11.2 ENCOUNTER FOR SCREENING FOR OTHER BACTER 06/15/2018 Ot 285.9 ANEMIA NOS 06/16/2018 SVETLANA ONEALREAGAN Ot D25.9 LEIOMYOMA OF UTERUS, UNSPECIFIED 06/16/2018 SVETLANA REAGAN ONEAL Ot D50.0 IRON DEFICIENCY ANEMIA SECONDARY TO BLOO 06/16/2018 SVETLANA REAGAN ONEAL Ot K64.4 RESIDUAL HEMORRHOIDAL SKIN TAGS 06/16/2018 SVETLANA REAGAN ONEAL Ot N80.0 ENDOMETRIOSIS OF UTERUS 06/16/2018 FLORKAUSHIK REAGAN ONEAL Ot N83.8 OTH NONINFLAMMATORY DISORD OF OVARY, FAL 06/16/2018 SVETLANA DOREAGAN Ot N92.0 EXCESSIVE AND FREQUENT MENSTRUATION WITH 06/18/2018 SVETLANA REAGAN ONEAL Ot D50.0 IRON DEFICIENCY ANEMIA SECONDARY TO BLOO 06/18/2018 SVETLANA REAGAN ONEAL Ot N93.9 ABNORMAL UTERINE AND VAGINAL BLEEDING, U 06/18/2018 SVETLANA ONEAL REAGAN Koch Ot Z01.812 ENCOUNTER FOR PREPROCEDURAL LABORATORY E 06/18/2018 SVETLANA REAGAN ONEAL Ot Z11.2 ENCOUNTER FOR SCREENING FOR OTHER BACTER 06/20/2018 SVETLANA REAGAN ONEAL Ot D25.9 LEIOMYOMA OF UTERUS, UNSPECIFIED 06/20/2018 SVETLANA DOREAGAN Ot D50.0 IRON DEFICIENCY ANEMIA SECONDARY TO BLOO 06/20/2018 SVETLANA REAGAN ONEAL Ot K64.4 RESIDUAL HEMORRHOIDAL SKIN TAGS 06/20/2018 SVETLANA DOREAGAN Ot N80.0 ENDOMETRIOSIS OF UTERUS 06/20/2018 FLORECH DOREAGAN Ot N83.8 OTH NONINFLAMMATORY DISORD OF OVARY, FAL 06/20/2018 FLORKAUSHIK DOREAGAN Ot N92.0 EXCESSIVE AND FREQUENT MENSTRUATION WITH 06/22/2018 SVETLANA ONEAL REAGAN Koch Ot D25.9 LEIOMYOMA OF UTERUS, UNSPECIFIED 06/22/2018 SVETLANA ONEAL REAGAN Koch Ot D50.0 IRON DEFICIENCY ANEMIA SECONDARY TO BLOO 06/22/2018 SVETLANA ONEAL REAGAN Koch Ot K64.4 RESIDUAL HEMORRHOIDAL SKIN TAGS 06/22/2018 SVETLANA ONEAL REAGAN Koch Ot N80.0 ENDOMETRIOSIS OF UTERUS 06/22/2018 SVETLANA ONEAL REAGAN Koch Ot N83.8 OTH NONINFLAMMATORY DISORD OF OVARY, FAL 06/22/2018 SVETLANA ONEAL REAGAN Koch Ot N92.0 EXCESSIVE AND FREQUENT MENSTRUATION WITH Procedures Code Description [place] [address] PAP SMEAR 09/18/2013 Q0091 PAP SMEAR OBTAIN SMEAR 09/18/2013 79076 ROUTINE VENIPUNCTURE 02/28/2014 79500 CMP 02/28/2014 14218 VITAMIN D 25-HYDROXY (D2,D3 , TOTAL) 02/28/2014 10710 VIT B 12 02/28/2014 84100 CBC 02/28/2014 46427 XRAY WRIST L COMP MIN 3 VIEWS 06/11/2014 ORTHOPROBERT WALLACE 06/12/2014 36489 APPLICATION OF FOREARM CAST 06/27/2014 63780 ROUTINE VENIPUNCTURE 09/04/2014 05072 GLUCOSE FINGER STICK 09/04/2014 J7042 5% DEXTROSE/NORMAL SALINE 09/04/2014 30840 IV INFUSION 09/04/2014 90941 CMP 09/04/2014 06686 CBC 09/04/2014 55495 PSYTX PT&/FAMILY 45 MINUTES 03/13/2015 Results Test [...] RED CELL DISTRIBUTION WIDTH 14.5 % 11.9-15.5 [id number] 6.8 10E9/L 3.5-10.5 [id number] 3.60 10E9/L 0.90-2.90 8363703 0.80 10E9/L 0.30-0.90 2971142 0.10 10E9/L 0.05-0.50 [id number] 2.20 10E9/L 1.70-7.00 [id number] 0.00 10E9/L 0.00-0.30 TSH (REFLEX FREE T4 [...] 1.003-1.030 THC Negative Cutoff 50 ng/mL Negative [id number] Chain of custody is on file at [facility], [place], [place] Complete blood count (CBC) with automated [...] human chorionic gonadotropin (hCG) measurement NEGATIVE NEGATIVE LIPID PANEL - 04/26/18 08:53 CHOLESTEROL, TOTAL 169 mg/dL <200 HDL CHOLESTEROL 48 mg/dL >50 TRIGLYCERIDES 161 mg/dL <150 LDL-CHOLESTEROL 94 mg/dL (calc) NRG CHOL/HDLC RATIO 3.5 (calc) <5.0 NON HDL CHOLESTEROL 121 mg/dL (calc) <130 Complete blood count (CBC) with automated white blood cell (WBC) differential - 04/26/18 11:30 Blood leukocytes automated count (number/volume) 6.1 10*3/uL 4.3-11.0 Blood erythrocytes automated count (number/volume) 3.29 10*6/uL 4.35-5.85 Venous blood hemoglobin measurement (mass/volume) 8.4 g/dL 11.5-16.0 Blood hematocrit (volume fraction) 27 % 35-52 Automated erythrocyte mean corpuscular volume 81 [foz_us] 80-99 Automated erythrocyte mean corpuscular hemoglobin (mass per erythrocyte) 26 pg 25-34 Automated erythrocyte mean corpuscular hemoglobin concentration measurement ( mass/volume) 32 g/dL 32-36 Automated erythrocyte distribution width ratio 17.2 % 10.0-14.5 Automated blood platelet count (count/volume) 287 10*3/uL 130-400 Automated blood platelet mean volume measurement 10.8 [foz_us] 7.4-10.4 Automated blood neutrophils/100 leukocytes 34 % 42-75 Automated blood lymphocytes/100 leukocytes 46 % 12-44 Blood monocytes/100 leukocytes 17 % 0-12 Automated blood eosinophils/100 leukocytes 3 % 0-10 Automated blood basophils/100 leukocytes 0 % 0-10 Blood neutrophils automated count (number/volume) 2.1 10*3 1.8-7.8 Blood lymphocytes automated count (number/volume) 2.8 10*3 1.0-4.0 Blood monocytes automated count (number/volume) 1.0 10*3 0.0-1.0 Automated eosinophil count 0.2 10*3/uL 0.0-0.3 Automated blood basophil count (count/volume) 0.0 10*3/uL 0.0-0.1 Comprehensive metabolic panel - 04/26/18 11:30 Serum or plasma sodium measurement (moles/volume) 140 mmol/L 135-145 Serum or plasma potassium measurement (moles/volume) 3.5 mmol/L 3.6-5.0 Serum or plasma chloride measurement (moles/volume) 105 mmol/L 98-107 Carbon dioxide 29 mmol/L 21-32 Serum or plasma anion gap determination (moles/volume) 6 mmol/L 5-14 Serum or plasma urea nitrogen measurement (mass/volume) 7 mg/dL 7-18 Serum or plasma creatinine measurement (mass/volume) 0.74 mg/dL 0.60-1.30 Serum or plasma urea nitrogen/creatinine mass ratio 9 NRG Serum or plasma creatinine measurement with calculation of estimated glomerular filtration rate > NRG Serum or plasma glucose measurement (mass/volume) 82 mg/dL 70-105 Serum or plasma calcium measurement (mass/volume) 9.0 mg/dL 8.5-10.1 Serum or plasma total bilirubin measurement (mass/volume) 0.2 mg/dL 0.1-1.0 Serum or plasma alkaline phosphatase measurement (enzymatic activity/volume) 54 U/L 40-136 Serum or plasma aspartate aminotransferase measurement (enzymatic activity/ volume) 16 U/L 5-34 Serum or plasma alanine aminotransferase measurement (enzymatic activity/volume ) 13 U/L 0-55 Serum or plasma protein measurement (mass/volume) 7.0 g/dL 6.4-8.2 Serum or plasma albumin measurement (mass/volume) 3.8 g/dL 3.2-4.5 Blood type T Indirect antibody screen panel - 05/30/18 11:30 ABO+Rh group ON NRG Transfusion band number [id number] [facility] Blood group antibody screen NEGATIVE NRG PT panel in platelet poor plasma by coagulation assay - 04/26/18 11:30 Prothrombin time (PT) in platelet poor plasma by coagulation assay 13.2 s 12.2-14.7 INR in platelet poor plasma or blood by coagulation assay 1.0 0.8-1.4 Activated partial thromboplastin time (aPTT) in platelet poor plasma bycoagulation assay - 04/26/18 11:30 Activated partial thromboplastin time (aPTT) in platelet poor plasma bycoagulation assay 27 s 24-35 Serum or plasma troponin i.cardiac measurement (mass/volume) - 04/26/18 11:30 Serum or plasma troponin i.cardiac measurement (mass/volume) < ng/ mL <0.30 Serum or plasma thyroxine (T4) free measurement (mass/volume) - 04/26/18 11:30 Serum or plasma thyroxine (T4) free measurement (mass/volume) 0.93 ng/dL 0.70-1.48 Serum or plasma thyrotropin measurement by detection limit <=0.05 miu/l (units/ volume) - 04/26/18 11:30 Serum or plasma thyrotropin measurement by detection limit <=0.05 miu/l (units/ volume) 5.03 u[iU]/mL 0.35-4.94 Complete urinalysis with reflex to culture - 04/26/18 13:20 Urine color determination YELLOW NRG Urine clarity determination CLEAR NRG Urine pH measurement by test strip 6 5-9 Specific gravity of urine by test strip 1.010 1.016- 1.022 Urine protein assay by test strip, semi-quantitative NEGATIVE NEGATIVE Urine glucose detection by automated test strip NEGATIVE NEGATIVE Erythrocytes detection in urine sediment by light microscopy NEGATIVE NEGATIVE Urine ketones detection by automated test strip NEGATIVE NEGATIVE Urine nitrite detection by test strip NEGATIVE NEGATIVE Urine total bilirubin detection by test strip NEGATIVE NEGATIVE Urine urobilinogen measurement by automated test strip (mass/volume) NORMAL NORMAL Urine leukocyte esterase detection by dipstick NEGATIVE NEGATIVE Automated urine sediment erythrocyte count by microscopy (number/high power field) NONE NRG Automated urine sediment leukocyte count by microscopy (number/high power field ) NONE NRG Bacteria detection in urine sediment by light microscopy NEGATIVE NRG Squamous epithelial cells detection in urine sediment by light microscopy 5-10 NRG Crystals detection in urine sediment by light microscopy NONE NRG Casts detection in urine sediment by light microscopy NONE NRG Mucus detection in urine sediment by light microscopy SMALL NRG Complete urinalysis with reflex to culture NO NRG Urine beta human chorionic gonadotropin (hCG) measurement - 04/26/18 13:20 Urine beta human chorionic gonadotropin (hCG) measurement NEGATIVE NEGATIVE Complete blood count (CBC) with automated white blood cell (WBC) differential - 05/31/18 18:00 Blood leukocytes automated count (number/volume) 6.5 10*3/uL 4.3-11.0 Blood erythrocytes automated count (number/volume) 3.60 10*6/uL 4.35-5.85 Venous blood hemoglobin measurement (mass/volume) 9.1 g/dL 11.5-16.0 Blood hematocrit (volume fraction) 29 % 35-52 Automated erythrocyte mean corpuscular volume 79 [foz_us] 80-99 Automated erythrocyte mean corpuscular hemoglobin (mass per erythrocyte) 25 pg 25-34 Automated erythrocyte mean corpuscular hemoglobin concentration measurement ( mass/volume) 32 g/dL 32-36 Automated erythrocyte distribution width ratio 17.8 % 10.0-14.5 Automated blood platelet count (count/volume) 383 10*3/uL 130-400 Automated

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
[2018-12-07] MEDS ORDERED: RX-HYDROCODONE/APAP 5/325 MG #4 TAB PK PO ONE (21:11)
[2018-12-07 21:15] VITALS: BP 131/86
== END 2018-12-07 21:15 | disposition home or self-care (01) ==
LOC: EDUNIT# 19:53 → ER 19:54
DX: S00.412A Abrasion of left ear, initial encounter (principal); I25.2 Old myocardial infarction; G43.909 Migraine, unspecified, not intractable, without status migrainosus; K21.9 Gastro-esophageal reflux disease without esophagitis; F41.0 Panic disorder [episodic paroxysmal anxiety]; D64.9 Anemia, unspecified; F32.9 Major depressive disorder, single episode, unspecified; Z91.5 Personal history of self-harm; Z87.19 Personal history of other diseases of the digestive system; Z87.448 Personal history of other diseases of urinary system; Z88.8 Allergy status to other drugs, medicaments and biological substances; Z79.51 Long term (current) use of inhaled steroids; Z80.42 Family history of malignant neoplasm of prostate; Z98.890 Other specified postprocedural states; Z90.710 Acquired absence of both cervix and uterus; Z98.51 Tubal ligation status; X58.XXXA Exposure to other specified factors, initial encounter
CPT/HCPCS: 99283

== ENCOUNTER 2019-01-31 12:57 | Emergency (ER) | payer MEDICARE, MEDICAID ==
[~2019-01-31] VITALS: Ht 157.5 cm; Wt 63.5 kg
[~2019-01-31 12:57] MED LIST changes: -QUET200T2 PO; +QUET200T4 PO
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
[2019-01-31 13:17] LABS: BASOPHILS % (AUTO) 0 % (0-10); EOSINOPHILS % (AUTO) 0 % (0-10); HEMATOCRIT 29 % (35-52); HEMOGLOBIN 8.8 G/DL (11.5-16.0); LYMPHOCYTES # (AUTO) 2.5 X 10^3 (1.0-4.0); LYMPHOCYTES % (AUTO) 31 % (12-44); MEAN CORPUSCULAR HEMOGLOBIN 24 PG (25-34); MEAN CORPUSCULAR HGB CONC 31 G/DL (32-36); MEAN CORPUSCULAR VOLUME 78 FL (80-99); MEAN PLATELET VOLUME 10.1 FL (7.4-10.4); MONOCYTES # (AUTO) 0.8 X 10^3 (0.0-1.0); MONOCYTES % (AUTO) 10 % (0-12); NEUTROPHILS # (AUTO) 4.8 X 10^3 (1.8-7.8); NEUTROPHILS % (AUTO) 59 % (42-75); PLATELET COUNT 418 10^3/uL (130-400); RED CELL DISTRIBUTION WIDTH 17.8 % (10.0-14.5); WHITE BLOOD COUNT 8.2 10^3/uL (4.3-11.0)
[2019-01-31 13:36] LABS: ALANINE AMINOTRANSFERASE 32 U/L (0-55); ALBUMIN 4.5 GM/DL (3.2-4.5); ALKALINE PHOSPHATASE 79 U/L (40-136); BILIRUBIN,TOTAL 0.2 MG/DL (0.1-1.0); BUN/CREATININE RATIO 15; CALCIUM 9.7 MG/DL (8.5-10.1); CARBON DIOXIDE 24 MMOL/L (21-32); CHLORIDE 105 MMOL/L (98-107); CREATININE SERUM 0.89 MG/DL (0.60-1.30); GFR ESTIMATED > 60; GLUCOSE 101 MG/DL (70-105); POTASSIUM 3.4 MMOL/L (3.6-5.0); SODIUM 138 MMOL/L (135-145); TOTAL PROTEIN 8.3 GM/DL (6.4-8.2)
[2019-01-31 13:45] LABS: ERYTHROCYTE SEDIMENTATION RATE 55 MM/HR (0-20)
[2019-01-31] MEDS ORDERED: KETOROLAC 30 MG/ML VIAL IVP ONE (14:15)
[2019-01-31] MEDS ORDERED: NS IV 1000 ML 1,000 ML IV SCH (14:15)
[2019-01-31] MEDS ORDERED: METR-145 PO ×2 (14:32→15:20)
[2019-01-31] MEDS ORDERED: SULF1TAB35 PO ×2 (14:32→15:20)
[2019-01-31] MEDS ORDERED: PRED5TAB PO ×2 (14:32→15:20)
--- NOTE | 2019-01-31 14:39 | Diagnostic Imaging Report ---
PROCEDURE: CT abdomen and pelvis with contrast. TECHNIQUE: Multiple contiguous axial images were obtained through the abdomen and pelvis after administration of intravenous contrast. INDICATION: Abdominal pain and bloody stools. Correlation is made with prior CT from 04/26/2018. The lung bases are clear. No discrete liver mass is identified. Gallbladder is surgically absent. No biliary ductal dilatation is seen. The pancreas and spleen are unremarkable. No adrenal mass is detected. The kidneys are unremarkable. Aorta is non-aneurysmal. There is fluid throughout the colon consistent with patient's known diarrhea. There is some mild normal caliber fluid-filled small bowel loops as well. Pattern appears nonobstructed. No free fluid or fluid collection in the abdomen is seen. There is no free air. No definite bowel wall thickening or pneumatosis is identified. Appendix is visualized and unremarkable. Partially filled bladder is unremarkable. IMPRESSION: Nonspecific mild fluid-filled small and large bowel loops. No definite bowel obstruction is seen. No other significant abnormality is identified. Dictated by: Dictated on workstation # [id number]
[2019-01-31 15:23] VITALS: BP 113/78
== END 2019-01-31 15:23 | disposition home or self-care (01) ==
LOC: EDUNIT# 12:57 → ER 12:58
DX: R19.7 Diarrhea, unspecified (principal); R19.5 Other fecal abnormalities; I25.2 Old myocardial infarction; G43.909 Migraine, unspecified, not intractable, without status migrainosus; K21.9 Gastro-esophageal reflux disease without esophagitis; F41.0 Panic disorder [episodic paroxysmal anxiety]; D63.8 Anemia in other chronic diseases classified elsewhere; F32.9 Major depressive disorder, single episode, unspecified; Z91.5 Personal history of self-harm; Z87.19 Personal history of other diseases of the digestive system; Z88.8 Allergy status to other drugs, medicaments and biological substances; Z79.52 Long term (current) use of systemic steroids; Z82.49 Family history of ischemic heart disease and other diseases of the circulatory system; Z90.710 Acquired absence of both cervix and uterus; Z98.51 Tubal ligation status; Z98.890 Other specified postprocedural states
CPT/HCPCS: 36415; 74177; 80053; 83690; 85025; 85652

== ENCOUNTER 2019-02-23 10:00 | Outpatient (CLI) | payer MEDICARE, MEDICAID ==
[~2019-02-23] VITALS: Ht 157.5 cm; Wt 65.3 kg
[~2019-02-23 10:00] MED LIST changes: +METR-145 PO; +PRED5TAB PO; +SULF1TAB35 PO
[2019-02-23] MEDS ORDERED: GABA-488 PO (10:02)
[2019-02-23] MEDS ORDERED: TRAZ150T72 PO (10:02)
[2019-02-23] MEDS ORDERED: QUET100T69 PO (10:02)
[2019-02-23] MEDS ORDERED: ARIP2TAB11 PO (10:02)
== END 2019-02-23 13:30 | disposition home or self-care (01) ==
LOC: PREOP 10:00
PROVIDERS: ATTEND Surgery
DX: Z01.818 Encounter for other preprocedural examination (principal)

== ENCOUNTER 2019-02-27 10:57 | Day surgery (SDC) | payer MEDICARE, MEDICAID ==
[~2019-02-27] VITALS: Ht 157.5 cm; Wt 65.3 kg
[~2019-02-27 10:57] MED LIST changes: +ARIP2TAB11 PO; +GABA-488 PO; +QUET100T69 PO; +TRAZ150T72 PO
[2019-02-27 11:10] VITALS: BP 114/76
[2019-02-27] MEDS ORDERED: LACTATED RINGERS 1,000 ML IV ONE (11:13)
[2019-02-27] MEDS ORDERED: LACTATED RINGERS 1,000 ML IV PRN (11:15)
[2019-02-27] MEDS ORDERED: QUET25TA PO (12:12)
[2019-02-27] MEDS ORDERED: PROPOFOL INJECTION 50 ML IV ONE (13:04)
[2019-02-27] MEDS ORDERED: MIDAZOLAM 2 MG/2 ML (VERSED) VIAL ONE (13:04)
[2019-02-27] MEDS ORDERED: GLYCOPYRROLATE 0.2 MG/ML (ROBINUL) 2 ML VIAL ONE (13:05)
--- NOTE | 2019-02-27 13:05 | Progress Note-Pre Operative ---
Pre-Operative Progress Note H&P Reviewed The H&P was reviewed, patient examined and no changes noted. Date Seen by Provider: Feb 27, 2019 Time Seen by Provider: 13:04 Date H&P Reviewed: Feb 27, 2019 Time H&P Reviewed: 13:04 Pre-Operative Diagnosis: blood in stool BETTYE CRANE DO Feb 27, 2019 13:05
--- NOTE | 2019-02-27 13:53 | Progress Note-Post Operative ---
Post-Operative Progess Note Surgeon (s)/Solar Installation Helper (s) Surgeon BETTYE CRANE DO Solar Installation Helper: na Pre-Operative Diagnosis blood in stool Post-Operative Diagnosis internal hemorrhoid Procedure & Operative Findings Date of Procedure 02/27/19 Procedure Performed/Findings colonoscopy Anesthesia Type per teasel gig operator Estimated Blood Loss Estimated blood loss (mL): none Specimens/Packing Specimens Removed na BETTYE CRANE DO Feb 27, 2019 13:53
--- NOTE | 2019-02-27 13:55 | Discharge Inst-Simple/Standard ---
Discharge Inst-Standard Patient Instructions/Follow Up Plan of Care/Instructions/FU: 2-3 weeks Stephanie Activity as Tolerated: Yes Discharge Diet: Regular Diet BETTYE CRANE DO Feb 27, 2019 13:55
[2019-02-27 14:00] VITALS: BP 101/66
[2019-02-27 14:25] VITALS: BP 111/69
[2019-02-27 14:30] VITALS: BP 111/69
--- NOTE | 2019-02-27 18:57 | OPERATIVE REPORT ---
DATE OF SERVICE: 02/27/2019 PREOPERATIVE DIAGNOSIS: Blood in stool. POSTOPERATIVE DIAGNOSIS: Internal hemorrhoid. PROCEDURE: Colonoscopy. SURGEON: Bettye Brown DO ANESTHESIA: Per FUSING FURNACE LOADER. ESTIMATED BLOOD LOSS: None. COMPLICATIONS: None. INDICATIONS: The patient is a 43-year-old female with blood in stools. She understands risks and benefits of procedure and wished to proceed with procedure. Consent was signed on the chart. DESCRIPTION OF PROCEDURE: The patient was taken to the endoscopy suite, placed in left lateral recumbent position. Timeout was performed. Digital rectal exam was performed, just noting internal hemorrhoid. No palpable polyps, masses or ulcerations. Scope was inserted into the rectum and advanced all the way to the cecum with minimal difficulty. Prep was adequate. Scope was then slowly retracted back. There were no polyps, mass or ulcerations within the cecum, ascending, transverse, descending and sigmoid colon. Once in the rectum, scope was retroflexed noting one internal hemorrhoid. The scope was then returned to its normal position, slowly withdrawn until completely removed. The patient tolerated procedure well without any complications. She was taken to recovery room in stable condition. RECOMMENDATIONS: The patient will follow up in the office in 2 weeks. We will discuss treatment options if she feels this is symptomatic enough. Repeat colonoscopy in 10 years unless family history of colon cancer, which would then be 5 years. Any issues before that, will be seen at that time. Job ID: [id number] DocumentID: [id number] Dictated Date: 02/27/2019 14:02:27 Media Center Assistant Date: 02/27/2019 18:56:58 Dictated By: BETTYE BROWN DO
== END 2019-02-27 14:30 | disposition home or self-care (01) ==
LOC: ENDO 10:57
PROVIDERS: ATTEND Surgery
DX: K64.8 Other hemorrhoids (principal); K90.0 Celiac disease; K21.9 Gastro-esophageal reflux disease without esophagitis; K44.9 Diaphragmatic hernia without obstruction or gangrene; E05.90 Thyrotoxicosis, unspecified without thyrotoxic crisis or storm; F32.9 Major depressive disorder, single episode, unspecified; F41.9 Anxiety disorder, unspecified; Z79.899 Other long term (current) drug therapy

== ENCOUNTER 2019-03-15 13:21 | Outpatient (RCR) | payer MEDICARE, MEDICAID ==
[2019-01-23 13:32] LABS: BASOPHILS % (AUTO) 1 % (0-10); EOSINOPHILS # (AUTO) 0.1 10^3/uL (0.0-0.3); EOSINOPHILS % (AUTO) 2 % (0-10); HEMATOCRIT 26 % (35-52); HEMOGLOBIN 7.8 G/DL (11.5-16.0); LYMPHOCYTES # (AUTO) 3.2 X 10^3 (1.0-4.0); LYMPHOCYTES % (AUTO) 55 % (12-44); MEAN CORPUSCULAR HEMOGLOBIN 24 PG (25-34); MEAN CORPUSCULAR HGB CONC 30 G/DL (32-36); MEAN CORPUSCULAR VOLUME 79 FL (80-99); MEAN PLATELET VOLUME 9.9 FL (7.4-10.4); MONOCYTES # (AUTO) 0.8 X 10^3 (0.0-1.0); MONOCYTES % (AUTO) 13 % (0-12); NEUTROPHILS # (AUTO) 1.7 X 10^3 (1.8-7.8); NEUTROPHILS % (AUTO) 29 % (42-75); PLATELET COUNT 392 10^3/uL (130-400); RED CELL DISTRIBUTION WIDTH 17.7 % (10.0-14.5); WHITE BLOOD COUNT 5.7 10^3/uL (4.3-11.0)
[2019-01-23 13:57] LABS: ALANINE AMINOTRANSFERASE 22 U/L (0-55); ALBUMIN 3.9 GM/DL (3.2-4.5); ALKALINE PHOSPHATASE 71 U/L (40-136); BILIRUBIN,TOTAL 0.1 MG/DL (0.1-1.0); BUN/CREATININE RATIO 13; CARBON DIOXIDE 30 MMOL/L (21-32); CHLORIDE 105 MMOL/L (98-107); GFR ESTIMATED > 60; GLUCOSE 84 MG/DL (70-105); POTASSIUM 3.8 MMOL/L (3.6-5.0); SODIUM 139 MMOL/L (135-145); TOTAL PROTEIN 7.1 GM/DL (6.4-8.2)
[2019-03-06 14:30] LABS: BASOPHILS # (AUTO) 0.1 10^3/uL (0.0-0.1); BASOPHILS % (AUTO) 1 % (0-10); EOSINOPHILS # (AUTO) 0.1 10^3/uL (0.0-0.3); EOSINOPHILS % (AUTO) 2 % (0-10); HEMATOCRIT 27 % (35-52); HEMOGLOBIN 8.1 G/DL (11.5-16.0); LYMPHOCYTES # (AUTO) 3.3 X 10^3 (1.0-4.0); LYMPHOCYTES % (AUTO) 54 % (12-44); MEAN CORPUSCULAR HEMOGLOBIN 23 PG (25-34); MEAN CORPUSCULAR HGB CONC 30 G/DL (32-36); MEAN CORPUSCULAR VOLUME 77 FL (80-99); MEAN PLATELET VOLUME 10.2 FL (7.4-10.4); MONOCYTES # (AUTO) 0.9 X 10^3 (0.0-1.0); MONOCYTES % (AUTO) 15 % (0-12); NEUTROPHILS # (AUTO) 1.7 X 10^3 (1.8-7.8); NEUTROPHILS % (AUTO) 28 % (42-75); PLATELET COUNT 441 10^3/uL (130-400); RED CELL DISTRIBUTION WIDTH 17.7 % (10.0-14.5)
[2019-03-06 14:49] LABS: ALANINE AMINOTRANSFERASE 16 U/L (0-55); ALBUMIN 3.7 GM/DL (3.2-4.5); ALKALINE PHOSPHATASE 75 U/L (40-136); BILIRUBIN,TOTAL 0.1 MG/DL (0.1-1.0); BUN/CREATININE RATIO 9; CARBON DIOXIDE 30 MMOL/L (21-32); CHLORIDE 107 MMOL/L (98-107); CREATININE SERUM 0.79 MG/DL (0.60-1.30); GFR ESTIMATED > 60; GLUCOSE 103 MG/DL (70-105); POTASSIUM 3.6 MMOL/L (3.6-5.0); SODIUM 141 MMOL/L (135-145); TOTAL PROTEIN 6.9 GM/DL (6.4-8.2)
[~2019-03-15 13:21] MED LIST changes: +FERRIC CARBOXYMALTOSE (CANCER) 750 MG in NS (IVPB) CANCER CENTER 250 ML IV SCH; +QUET25TA PO; -TRAZ-189 PO; +TRAZ-222 PO
== END 2019-04-23 | disposition home or self-care (01) ==
LOC: ONC 13:21
PROVIDERS: ATTEND Internal Medicine Hematology & Oncology
DX: D50.9 Iron deficiency anemia, unspecified (principal); K90.0 Celiac disease; K21.9 Gastro-esophageal reflux disease without esophagitis; R19.7 Diarrhea, unspecified; F32.9 Major depressive disorder, single episode, unspecified; Z79.899 Other long term (current) drug therapy
CPT/HCPCS: 36415; 80053; 82728; 83540; 85025; 96365; 99213; 99214

== ENCOUNTER 2019-05-03 13:39 | Outpatient (RCR) | payer MEDICARE, MEDICAID ==
[~2019-05-03 13:39] MED LIST changes: -DULO60CA58 PO; +DULO60CA59 PO; -FERRIC CARBOXYMALTOSE (CANCER) 750 MG in NS (IVPB) CANCER CENTER 250 ML IV SCH
[2019-05-03 13:47] LABS: BASOPHILS % (AUTO) 1 % (0-10); EOSINOPHILS # (AUTO) 0.3 10^3/uL (0.0-0.3); EOSINOPHILS % (AUTO) 4 % (0-10); HEMATOCRIT 38 % (35-52); HEMOGLOBIN 11.6 G/DL (11.5-16.0); LYMPHOCYTES # (AUTO) 3.2 X 10^3 (1.0-4.0); LYMPHOCYTES % (AUTO) 54 % (12-44); MEAN CORPUSCULAR HEMOGLOBIN 28 PG (25-34); MEAN CORPUSCULAR HGB CONC 31 G/DL (32-36); MEAN CORPUSCULAR VOLUME 92 FL (80-99); MEAN PLATELET VOLUME 10.6 FL (7.4-10.4); MONOCYTES # (AUTO) 0.7 X 10^3 (0.0-1.0); MONOCYTES % (AUTO) 11 % (0-12); NEUTROPHILS # (AUTO) 1.8 X 10^3 (1.8-7.8); NEUTROPHILS % (AUTO) 30 % (42-75); PLATELET COUNT 278 10^3/uL (130-400)
[2019-05-03 14:07] LABS: ALANINE AMINOTRANSFERASE 38 U/L (0-55); ALBUMIN 3.9 GM/DL (3.2-4.5); ALKALINE PHOSPHATASE 89 U/L (40-136); BILIRUBIN,TOTAL 0.1 MG/DL (0.1-1.0); BUN/CREATININE RATIO 9; CALCIUM 8.7 MG/DL (8.5-10.1); CARBON DIOXIDE 27 MMOL/L (21-32); CHLORIDE 108 MMOL/L (98-107); CREATININE SERUM 0.75 MG/DL (0.60-1.30); GFR ESTIMATED > 60; GLUCOSE 91 MG/DL (70-105); POTASSIUM 3.8 MMOL/L (3.6-5.0); SODIUM 141 MMOL/L (135-145); TOTAL PROTEIN 7.1 GM/DL (6.4-8.2)
== END 2019-08-01 | disposition home or self-care (01) ==
LOC: ONC 13:39
PROVIDERS: ATTEND Internal Medicine Hematology & Oncology
DX: D50.9 Iron deficiency anemia, unspecified (principal); K90.0 Celiac disease; K21.9 Gastro-esophageal reflux disease without esophagitis; R19.7 Diarrhea, unspecified; F32.9 Major depressive disorder, single episode, unspecified; Z79.899 Other long term (current) drug therapy
CPT/HCPCS: 36415; 80053; 82728; 83540; 84443; 85025; 99213

== ENCOUNTER 2019-11-26 14:31 | Outpatient (RCR) | payer MEDICARE, MEDICAID ==
[2019-10-31 12:30] LABS: BASOPHILS % (AUTO) 0 % (0-10); EOSINOPHILS # (AUTO) 0.4 10^3/uL (0.0-0.3); EOSINOPHILS % (AUTO) 5 % (0-10); HEMATOCRIT 41 % (35-52); HEMOGLOBIN 13.4 G/DL (11.5-16.0); LYMPHOCYTES # (AUTO) 2.7 X 10^3 (1.0-4.0); LYMPHOCYTES % (AUTO) 39 % (12-44); MEAN CORPUSCULAR HEMOGLOBIN 32 PG (25-34); MEAN CORPUSCULAR HGB CONC 33 G/DL (32-36); MEAN CORPUSCULAR VOLUME 97 FL (80-99); MEAN PLATELET VOLUME 10.4 FL (7.4-10.4); MONOCYTES # (AUTO) 0.7 X 10^3 (0.0-1.0); MONOCYTES % (AUTO) 11 % (0-12); NEUTROPHILS % (AUTO) 44 % (42-75); PLATELET COUNT 293 10^3/uL (130-400); RED CELL DISTRIBUTION WIDTH 13.8 % (10.0-14.5); WHITE BLOOD COUNT 6.8 10^3/uL (4.3-11.0)
[2019-10-31 12:48] LABS: ALANINE AMINOTRANSFERASE 64 U/L (0-55); ALBUMIN 4.1 GM/DL (3.2-4.5); ALKALINE PHOSPHATASE 117 U/L (40-136); BILIRUBIN,TOTAL 0.3 MG/DL (0.1-1.0); BUN/CREATININE RATIO 10; CALCIUM 9.2 MG/DL (8.5-10.1); CARBON DIOXIDE 27 MMOL/L (21-32); CHLORIDE 107 MMOL/L (98-107); CREATININE SERUM 0.82 MG/DL (0.60-1.30); GFR ESTIMATED > 60; GLUCOSE 108 MG/DL (70-105); POTASSIUM 3.7 MMOL/L (3.6-5.0); SODIUM 141 MMOL/L (135-145); TOTAL PROTEIN 7.6 GM/DL (6.4-8.2)
[~2019-11-26 14:31] MED LIST changes: -ARIP2TAB11 PO; +ARIP2TAB20 PO; +DIPH25CA48 PO; -DIPH25CA6 PO; +QUET100T33 PO; -QUET100T69 PO; -TRAZ-222 PO; +TRZ50T PO
== END 2020-01-29 | disposition home or self-care (01) ==
LOC: ONC 14:31
PROVIDERS: ATTEND Internal Medicine Hematology & Oncology
DX: D50.9 Iron deficiency anemia, unspecified (principal); K90.0 Celiac disease; K21.9 Gastro-esophageal reflux disease without esophagitis; R19.7 Diarrhea, unspecified; F32.9 Major depressive disorder, single episode, unspecified; K29.41 Chronic atrophic gastritis with bleeding; Z86.2 Personal history of diseases of the blood and blood-forming organs and certain disorders involving the immune mechanism; Z79.899 Other long term (current) drug therapy
CPT/HCPCS: 80053; 82728; 83540; 84443; 85025; 99213

== ENCOUNTER → 2019-12-28 | Outpatient (CLI) | payer MEDICARE, MEDICAID ==
[~2019-12-28] MED LIST changes: -QUET100T33 PO; +QUET100T69 PO
--- NOTE | 2019-12-28 16:11 | Diagnostic Imaging Report ---
INDICATION: Bilateral breast pain. COMPARISON: No prior studies are available for comparison. TECHNIQUE: 2-D and 3-D bilateral diagnostic mammography was performed. The current study was also evaluated with a Computer Aided Detection (CAD) system. 3-D tomosynthesis was also performed and reviewed. FINDINGS: Both breasts are heterogeneously dense, limiting the sensitivity of mammography. There are numerous circumscribed lesions in both breasts, likely representing cysts. Circumscribed mass in the anterior depth upper-outer right breast is seen. There are also numerous additional smaller circumscribed lesions in the outer right breast. There is a circumscribed lesion in the inner left breast at approximately 9 o'clock location, 7 cm from the nipple. No spiculated mass or malignant-appearing microcalcifications are seen. Axillae are unremarkable. IMPRESSION: Circumscribed lesions in both breasts, likely cysts. Further evaluation of these areas with ultrasound is recommended and will be performed today. In addition, sonographic interrogation of the areas of pain in both breasts is recommended. ACR BI-RADS Category 0: Incomplete. (Needs additional imaging evaluation). Result letter will be mailed to the patient. Note: At least 10% of breast cancer is not imaged by mammography. Dictated by: Dictated on workstation # [id number]
--- NOTE | 2019-12-28 16:32 | Diagnostic Imaging Report ---
INDICATION: Bilateral breast pain. Patient also has bilateral circumscribed densities noted on recent mammogram. COMPARISON: Correlation is made with diagnostic mammogram performed earlier the same day. FINDINGS: There are numerous bilateral breast cysts. Left breast contains two small cysts at the 9:30 location, 7 cm from the nipple, largest approximately 7 mm x 4 mm. No solid lesions are seen. Right breast also contains multiple cysts. There is a cluster at the 7 o'clock location, 7 cm from the nipple. A single simple-appearing cyst at the 8 o'clock location, 5 cm from the nipple is noted measuring approximately 6 mm. A larger cyst at the 10 o'clock location, 3 cm from the nipple measures 12 mm x 8 mm x 15 mm. Cluster of cysts at the 3 o'clock location, 2 cm from the nipple is noted, in aggregate measuring 10 mm x 7 mm. No solid lesions are seen. IMPRESSION: Multiple bilateral breast cysts, accounting for the mammographic densities. No solid breast mass or any other concerning finding is identified. Patient may return to routine annual screening mammography. ACR BI-RADS Category 2: Benign findings. Dictated by: Dictated on workstation # [id number]
== END ==
LOC: RAD 12:29
PROVIDERS: ATTEND Nurse Practitioner Primary Care
DX: N60.01 Solitary cyst of right breast (principal); N60.02 Solitary cyst of left breast
CPT/HCPCS: 77066

== ENCOUNTER → 2020-11-05 | Outpatient (CLI) | payer MEDICARE, MEDICAID ==
[~2020-11-05] MED LIST changes: -MESA10002 RC; +MESA10003 RC; -PANT40TA3 PO; +PANT40TA52 PO; +QUET100T33 PO; -QUET100T69 PO
--- NOTE | 2020-11-05 10:19 | Diagnostic Imaging Report ---
PROCEDURE: MRI left upper extremity without contrast. TECHNIQUE: Multiplanar, multisequence non contrast-enhanced MRI of the left upper extremity was accomplished. INDICATION: Left shoulder pain, multiple falls COMPARISON: 12/23/2016 FINDINGS: No acute fracture seen in the left shoulder. Alignment is normal. There is no joint effusion. The supraspinatus tendon is intact. The infraspinatus tendon appears intact. The teres minor tendon is intact. The subscapularis tendon is intact. The long head of the biceps tendon is normal in course and signal. The glenoid labrum is suboptimally evaluated without intra-articular contrast, but no para labral cyst or displaced labral tear is seen. The acromion has a curved undersurface without hooking. The coracoclavicular and coracoacromial ligaments are intact. The inferior glenohumeral ligament is normal in thickness. Subcoracoid fat is preserved. There are small normal-appearing lymph nodes in the left axilla. No masses or fluid collections are seen. IMPRESSION: 1. No acute abnormality is seen in the left shoulder. Dictated by: Dictated on workstation # [id number]
== END ==
LOC: RAD 09:30
PROVIDERS: ATTEND Nurse Practitioner
DX: S46.012D Strain of muscle(s) and tendon(s) of the rotator cuff of left shoulder, subsequent encounter (principal); X58.XXXD Exposure to other specified factors, subsequent encounter
CPT/HCPCS: 73221

== ENCOUNTER → 2021-06-16 | Outpatient (CLI) | payer MEDICARE, MEDICAID ==
[~2021-06-16] MED LIST changes: +ESCI20TA39 PO; -ESCI20TA45 PO; +SERT-414 PO; -SERT100T8 PO; -SULF1TAB35 PO; +SULF1TAB38 PO
--- NOTE | 2021-06-17 13:17 | Diagnostic Imaging Report ---
Indication: Digital screening with CAD, 2-D and 3-D. COMPARISON: 11/2019. Parenchymal pattern is heterogeneously dense which can limit mammographic sensitivity. No mass, architecture distortions, spiculated lesion, suspicious calcifications or interval changes were found. IMPRESSION: Stable negative mammograms BI-RADS Category 1 ACR BI-RADS Category 1: Negative. Result letter will be mailed to the patient. Note: At least 10% of breast cancer is not imaged by mammography. Dictated by: Dictated on workstation # [id number]
== END ==
LOC: RAD 13:43
PROVIDERS: ATTEND Physician Assistant
DX: Z12.31 Encounter for screening mammogram for malignant neoplasm of breast (principal)
CPT/HCPCS: 77063; 77067

== ENCOUNTER 2022-07-24 18:44 | Emergency (ER) | payer MEDICARE, MEDICAID ==
[~2022-07-24] VITALS: Ht 157.5 cm; Wt 80.7 kg
[2022-07-24 19:53] LABS: BASOPHILS # (AUTO) 0.1 10^3/uL (0.0-0.1); BASOPHILS % (AUTO) 1 % (0-10); EOSINOPHILS # (AUTO) 0.3 10^3/uL (0.0-0.3); EOSINOPHILS % (AUTO) 3 % (0-10); HEMATOCRIT 37 % (35-52); HEMOGLOBIN 12.3 g/dL (11.5-16.0); LYMPHOCYTES # (AUTO) 4.5 10^3/uL (1.0-4.0); LYMPHOCYTES % (AUTO) 43 % (12-44); MEAN CORPUSCULAR HEMOGLOBIN 33 pg (25-34); MEAN CORPUSCULAR HGB CONC 33 g/dL (32-36); MEAN CORPUSCULAR VOLUME 100 fL (80-99); MEAN PLATELET VOLUME 10.4 fL (9.0-12.2); MONOCYTES # (AUTO) 0.9 10^3/uL (0.0-1.0); MONOCYTES % (AUTO) 8 % (0-12); NEUTROPHILS # (AUTO) 4.7 10^3/uL (1.8-7.8); NEUTROPHILS % (AUTO) 45 % (42-75); PLATELET COUNT 391 10^3/uL (130-400); WHITE BLOOD COUNT 10.4 10^3/uL (4.3-11.0)
[2022-07-24 19:57] LABS: CHLORIDE 107 MMOL/L (98-107); POTASSIUM 3.5 MMOL/L (3.6-5.0); SODIUM 139 MMOL/L (135-145)
[2022-07-24 19:58] LABS: ALBUMIN 3.7 GM/DL (3.2-4.5)
[2022-07-24 19:59] LABS: CALCIUM 9.5 MG/DL (8.5-10.1)
[2022-07-24 20:00] LABS: GLUCOSE 131 MG/DL (70-105); TOTAL PROTEIN 7.5 GM/DL (6.4-8.2)
[2022-07-24 20:01] LABS: CARBON DIOXIDE 19 MMOL/L (21-32)
[2022-07-24 20:02] LABS: BILIRUBIN,TOTAL 0.3 MG/DL (0.1-1.0)
[2022-07-24 20:04] LABS: ALKALINE PHOSPHATASE 148 U/L (40-136); CREATININE SERUM 0.88 MG/DL (0.60-1.30); GFR ESTIMATED 82
[2022-07-24 20:05] LABS: BUN/CREATININE RATIO 7
[2022-07-24 20:06] LABS: ACETAMINOPHEN < 10 UG/ML (10-30); SALICYLATE < 5.0 MG/DL (5.0-20.0)
[2022-07-24 20:07] LABS: ALANINE AMINOTRANSFERASE 44 U/L (0-55)
[2022-07-24 20:13] LABS: BILIRUBIN,URINE NEGATIVE (NEGATIVE); CLARITY,URINE SL CLOUDY; COLOR,URINE YELLOW; GLUCOSE, URINE (UA) NEGATIVE (NEGATIVE); KETONES,URINE NEGATIVE (NEGATIVE); LEUKOCYTE ESTERASE ,URINE NEGATIVE (NEGATIVE); NITRITE,URINE NEGATIVE (NEGATIVE); PROTEIN,URINE NEGATIVE (NEGATIVE)
[2022-07-24 20:22] LABS: BACTERIA,URINE MODERATE /HPF; YEAST,URINE FEW /HPF
[2022-07-24 20:24] LABS: AMPHETAMINE SCREEN, URINE NEGATIVE (NEGATIVE); BARBITURATE SCREEN URINE NEGATIVE (NEGATIVE); BENZODIAZEPINES SCREEN URINE NEGATIVE (NEGATIVE); CANNABINOID SCREEN, URINE NEGATIVE (NEGATIVE); COCAINE SCREEN URINE NEGATIVE (NEGATIVE); METHADONE STAT NEGATIVE (NEGATIVE); OPIATE SCREEN URINE NEGATIVE (NEGATIVE); OXYCODONE STAT NEGATIVE (NEGATIVE); PROPOXYPHENE STAT NEGATIVE (NEGATIVE); TRICYCLIC ANTIDEPRESSANTS SCRE NEGATIVE (NEGATIVE)
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
[2022-07-25 05:00] VITALS: BP 122/87
== END 2022-07-25 05:03 | disposition home or self-care (01) ==
LOC: EDUNIT# 18:44 → ER 18:46
DX: S51.012A Laceration without foreign body of left elbow, initial encounter (principal); F32.A Depression, unspecified; F17.290 Nicotine dependence, other tobacco product, uncomplicated; X78.8XXA Intentional self-harm by other sharp object, initial encounter
CPT/HCPCS: 36415; 80053; 80306; 80320; 80329; 81000; 85025; 86850; 86900; 86901; 87088; 93005